=== PATIENT | male | born 1975 ===

== ENCOUNTER 2018-05-25 11:20 | Inpatient (IN) | payer MEDICAID, OTHER ==
[2018-05-25] MEDS ORDERED: Sodium Chloride 0.9% 1,000 ML IV STA ×2 (11:57)
--- NOTE | 2018-05-25 12:02 | ED PDOC ---
Hyperglycemia/Hypoglycemia Time Seen by Provider: 05/25/18 11:37 Chief Complaint (Nursing): High Blood Sugar Chief Complaint (Provider): High Blood Sugar History Per: Patient History/Exam Limitations: no limitations Onset/Duration Of Symptoms: Days (x3 weeks) Current Symptoms Are (Timing): Still Present Associated Infectious Symptoms: Urinary Frequency. denies: Nausea, Vomiting : The patient does not have any of the infectious symptoms listed except for those marked. Additional Complaint(s): 42 year old male presents for high glucose and ketones in urine. Patient was send by PMD due to symptoms. He states he has been thirsty, feeling dehydrated, and urinating a lot for the past 3 weeks. He also lost 30 pounds in the last 3 weeks. Patient denies chest pain, shortness of breath, nausea, vomiting, abdominal pain or any other medical complaints. PMD: [place] Past Medical History Reviewed: Historical Data, Nursing Documentation, Vital Signs Vital Signs: Last Vital Signs Temp 97.5 F L 05/25/18 11:30 Pulse 87 05/25/18 11:30 Resp 20 05/25/18 11:30 BP 147/87 05/25/18 11:30 Pulse Ox 99 05/25/18 11:30 - Medical History PMH: No Chronic Diseases - Family History Family History: States: Unknown Family Hx - Allergies Allergies/Adverse Reactions: Allergies Allergy/AdvReac Type Severity Reaction Status Date / Time No Known Allergies Allergy Verified 05/25/18 11:29 Review of Systems ROS Statement: Except As Marked, All Systems Reviewed And Found Negative Constitutional: Positive for: Weight loss (30 lbs in x3 weeks), Other (thirsty and dehydrated) Cardiovascular: Negative for: Chest Pain Respiratory: Negative for: Shortness of Breath Gastrointestinal: Negative for: Nausea, Vomiting, Abdominal Pain Genitourinary Male: Positive for: Frequency Physical Exam - Reviewed Nursing Documentation Reviewed: Yes Vital Signs Reviewed: Yes - Physical Exam Appears: Positive for: Non-toxic, No Acute Distress Head Exam: Positive for: ATRAUMATIC, NORMOCEPHALIC Skin: Positive for: Normal Color, Warm, Dry Eye Exam: Positive for: EOMI, Normal appearance, PERRL ENT: Positive for: Other (Mucous membranes dry) Neck: Positive for: Normal Cardiovascular/Chest: Positive for: Regular Rate, Rhythm. Negative for: Murmur Respiratory: Positive for: Normal Breath Sounds. Negative for: Respiratory Distress Gastrointestinal/Abdominal: Positive for: Normal Exam, Soft. Negative for: Tenderness Extremity: Positive for: Normal ROM (upper and lower). Negative for: Pedal Edema, Deformity Neurologic/Psych: Positive for: Alert, Oriented (x3) - Laboratory Results Result Diagrams: 05/25/18 12:05 05/25/18 12:05 - ECG O2 Sat by Pulse Oximetry: 99 (RA) Pulse Ox Interpretation: Normal - Radiology X-Ray: Interpreted by Me X-Ray Interpretation: No Acute Disease Medical Decision Making Medical Decision Making: Time: 1156 Initial Impression: High Glucose and Ketones Initial Plan: --EKG --CMP --Troponin --Urine dip --CBC with differentials --PTT --Prothrombin time --CXR --NS --Glucose --UA Scribe Attestation: Documented by Gladis Cisneros, acting as a scribe for Leatha Rainey MD Provider Scribe Attestation: All medical record entries made by the Scribe were at my direction and personally dictated by me. I have reviewed the chart and agree that the record accurately reflects my personal performance of the history, physical exam, medical decision making, and the department course for this patient. I have also personally directed, reviewed, and agree with the discharge instructions and disposition. Disposition - Disposition Condition: STABLE Forms: [employer] (Chinese)
[2018-05-25 12:16] LABS: VENOUS BLOOD GAS BASE EXCESS -6.4 mmol/L (0.0-2.0); VENOUS BLOOD GAS PCO2 43 mmHg (40-60); VENOUS BLOOD GAS PO2 38 mm/Hg (30-55); VENOUS BLOOD PH 7.28 (7.32-7.43)
[2018-05-25 12:19] LABS: BASO # 0.1 K/uL (0.0-0.2); BASO % 1.4 % (0.0-2.0); EOS # 0.1 K/uL (0.0-0.7); EOS % 1.7 % (0.0-4.0); HEMOGLOBIN 15.6 g/dL (12.0-18.0); LYMPH # 2.3 K/uL (1.0-4.3); LYMPH % 29.1 % (20.0-40.0); MEAN CELL VOLUME 86.8 fl (80.0-94.0); MEAN CORPUSCULAR HEMOGLOBIN 28.8 pg (27.0-31.0); MEAN CORPUSCULAR HGB CONC 33.2 g/dL (33.0-37.0); MEAN PLATELET VOLUME 9.6 fl (7.2-11.7); MONO # 0.6 K/uL (0.0-0.8); MONO % 7.9 % (0.0-10.0); NEUT # 4.7 K/uL (1.8-7.0); NEUT % 59.9 % (50.0-75.0); NRBC % 0.1 % (0.0-0.0); RBC 5.4 Mil/uL (4.40-5.90); RED CELL DISTRIBUTION WIDTH 13.2 % (11.5-14.5); WHITE BLOOD COUNT 7.9 K/uL (4.8-10.8)
[2018-05-25 12:29] LABS: INR 0.9; PROTHROMBIN TIME 10.5 Seconds (9.8-13.1)
[2018-05-25 12:30] LABS: ALB/GLOB RATIO 0.9 (1.0-2.1); ALBUMIN 4.4 g/dL (3.5-5.0); ALT/SGPT 54 U/L (21-72); AST/SGOT 33 U/L (17-59); BLOOD UREA NITROGEN 25 mg/dl (9-20); CALCIUM 9.8 mg/dL (8.4-10.2); GFR NON-AFRICAN AMERICAN > 60
[2018-05-25 12:31] LABS: PARTIAL THROMBOPLASTIN TIME 28.3 Seconds (25.6-37.1)
[2018-05-25 12:46] LABS: URINE BILIRUBIN NEGATIVE (NEGATIVE); URINE BLOOD NEGATIVE (NEGATIVE); URINE CLARITY CLEAR (Clear); URINE COLOR STRAW (YELLOW); URINE GLUCOSE (UA) >=500 mg/dL (NEGATIVE); URINE LEUKOCYTE ESTERASE NEG Leu/uL (Negative); URINE PROTEIN NEGATIVE (NEGATIVE); URINE UROBILINOGEN 0.2-1.0 mg/dL (0.2-1.0)
[2018-05-25] MEDS ORDERED: Dextrose 50% SYRINGE Inj (50 ml) IV PRN (12:54)
[2018-05-25] MEDS ORDERED: Glucagon Recombinant 1 mg Inj IM PRN (12:54)
--- NOTE | 2018-05-25 15:25 | CP.PCM.CON ---
History of Present Illness - History of Present Illness History of Present Illness: 42 YOM with strong family h/o DM, sent from his PCP office as his blood sugar was very HHH, on glucometer this morning. As per patient he was told 3-4 years ago, he was "pre-diabetic" but since then he never followed up with his physi sabi. For last month or so he has been urinating a lot, was feeling dehydrated and dizzy at times and had one episode of vomiting today. Lost about 30 lbs. This morning he walk into his PCP office, they sent him to ER where he found to have labs C/W DKA. No CP, fever, abdominal pain. Review of Systems - Constitutional Constitutional: As Per HPI - EENT Eyes: As Per HPI Nose/Mouth/Throat: As Per HPI - Cardiovascular Cardiovascular: As Per HPI - Respiratory Respiratory: As Per HPI - Gastrointestinal Gastrointestinal: Vomiting - Genitourinary Genitourinary: As Per HPI - Musculoskeletal Musculoskeletal: Stiffness Past Patient History - Past Medical History & Family History Past Medical History?: No - Past Social History Smoking Status: Heavy Smoker > 10 Cigarettes Daily - CARDIAC Hx Cardiac Disorders: Yes - PULMONARY Hx Respiratory Disorders: No - NEUROLOGICAL Hx Neurological Disorder: No - HEENT Hx HEENT Problems: No - RENAL Hx Chronic Kidney Disease: No - ENDOCRINE/METABOLIC Hx Endocrine Disorders: Yes - HEMATOLOGICAL/ONCOLOGICAL Hx Blood Disorders: No Hx AIDS: No Hx Human Immunodeficiency Virus (HIV): No - INTEGUMENTARY Hx Dermatological Problems: No - MUSCULOSKELETAL/RHEUMATOLOGICAL Hx Musculoskeletal Disorders: No Hx Falls: No - GENITOURINARY/GYNECOLOGICAL Hx Genitourinary Disorders: No - PSYCHIATRIC Hx Psychophysiologic Disorder: No Hx Substance Use: No - SURGICAL HISTORY Hx Surgeries: No - ANESTHESIA Hx Anesthesia: No Meds Allergies/Adverse Reactions: Allergies Allergy/AdvReac Type Severity Reaction Status Date / Time No Known Allergies Allergy Verified 05/25/18 11:29 - Medications Medications: Current Medications Dextrose (Dextrose 50% Inj) 0 ml IV STAT PRN; Protocol PRN Reason: Hypoglycemia Protocol Dextrose (Glutose 15) 0 gm PO ONCE PRN; Protocol PRN Reason: Hypoglycemia Protocol Glucagon (Glucagen Diagnostic Kit) 0 mg IM STAT PRN; Protocol PRN Reason: Hypoglycemia Protocol Insulin Human Regular 100 (units/ Sodium Chloride) 101 mls @ 10.1 mls/hr IV .Q10H MARY; Protocol Last Admin: 12/08/18 13:18 Dose: 10 units/hr, 10.1 mls/hr Sodium Chloride (Sodium Chloride 0.9%) 1,000 mls @ 250 mls/hr IV .Q4H MARY Stop: 05/26/18 14:47 Physical Exam - Head Exam Head Exam: ATRAUMATIC - Eye Exam Pupil Exam: PERRL - ENT Exam ENT Exam: Mucous Membranes Dry - Neck Exam Neck exam: Positive for: Full Rom - Respiratory Exam Respiratory Exam: NORMAL BREATHING PATTERN - Cardiovascular Exam Cardiovascular Exam: REGULAR RHYTHM - GI/Abdominal Exam GI & Abdominal Exam: Soft Results - Vital Signs Recent Vital Signs: Last Vital Signs Temp 97.5 F L 05/25/18 11:30 Pulse 88 05/25/18 14:12 Resp 13 05/25/18 14:12 BP 152/81 H 05/25/18 13:26 Pulse Ox 100 05/25/18 13:26 - Labs Result Diagrams: 05/25/18 12:05 05/25/18 12:05 Labs: Laboratory Results - last 24 hr 05/25/18 05/25/18 05/25/18 11:53 12:05 12:05 WBC 7.9 RBC 5.40 Hgb 15.6 Hct 46.9 MCV 86.8 MCH 28.8 MCHC 33.2 RDW 13.2 Plt Count 174 MPV 9.6 Neut % (Auto) 59.9 Lymph % (Auto) 29.1 [place] % (Auto) 7.9 Eos % (Auto) 1.7 Baso % (Auto) 1.4 Neut # (Auto) 4.7 Lymph # (Auto) 2.3 [place] # (Auto) 0.6 Eos # (Auto) 0.1 Baso # (Auto) 0.1 PT INR APTT pO2 ABG Carboxyhemoglobin POC ABG HHb (Measured) ABG Methemoglobin VBG pH VBG pCO2 VBG HCO3 VBG O2 Sat (Calc) VBG Base Excess VBG Hgb O2 Saturation Hemoglobin Blood Gas Comments Crit Value Called To Crit Value Called By Crit Value Read Back Blood Gas Notified Time Sodium 131 L Potassium 5.2 H Chloride 95 L Carbon Dioxide 16 L Anion Gap 25 H BUN 25 H Creatinine 0.9 Est GFR ( Amer) > 60 Est GFR (Non-Af Amer) > 60 POC Glucose (mg/dL) > 500 H* Random Glucose 715 H* Calcium 9.8 Total Bilirubin 0.7 AST 33 ALT 54 Alkaline Phosphatase 260 H Troponin I < 0.0120 Total Protein 9.2 H Albumin 4.4 Globulin 4.8 H Albumin/Globulin Ratio 0.9 L Urine Color Urine Clarity Urine pH Ur Specific [place] Urine Protein Urine Glucose (UA) Urine Ketones Urine Blood Urine Nitrate Urine Bilirubin Urine Urobilinogen Ur Leukocyte Esterase Urine RBC (Auto) Urine Microscopic WBC 05/25/18 05/25/18 05/25/18 12:05 12:05 12:20 WBC RBC Hgb Hct MCV MCH MCHC RDW Plt Count MPV Neut % (Auto) Lymph % (Auto) [place] % (Auto) Eos % (Auto) Baso % (Auto) Neut # (Auto) Lymph # (Auto) [place] # (Auto) Eos # (Auto) Baso # (Auto) PT 10.5 INR 0.9 APTT 28.3 pO2 38 ABG Carboxyhemoglobin 3.8 H POC ABG HHb (Measured) 21.1 H ABG Methemoglobin 3.1 H VBG pH 7.28 L VBG pCO2 43 VBG HCO3 19.1 VBG O2 Sat (Calc) 77.3 H VBG Base Excess -6.4 L VBG Hgb O2 Saturation 72.0 L Hemoglobin 16.4 Blood Gas Comments Vbg Crit Value Called To Nicole baltazar r.n. Crit Value Called By Tanya Crit Value Read Back Y Blood Gas Notified Time 1216 Sodium Potassium Chloride Carbon Dioxide Anion Gap BUN Creatinine Est GFR ( Amer) Est GFR (Non-Af Amer) POC Glucose (mg/dL) Random Glucose Calcium Total Bilirubin AST ALT Alkaline Phosphatase Troponin I Total Protein Albumin Globulin Albumin/Globulin Ratio Urine Color Straw Urine Clarity Clear Urine pH 6.0 Ur Specific [place] 1.030 Urine Protein Negative Urine Glucose (UA) >=500 Urine Ketones 20 Urine Blood Negative Urine Nitrate Negative Urine Bilirubin Negative Urine Urobilinogen 0.2-1.0 Ur Leukocyte Esterase Neg Urine RBC (Auto) < 1 Urine Microscopic WBC < 1 05/25/18 05/25/18 13:20 14:32 WBC RBC Hgb Hct MCV MCH MCHC RDW Plt Count MPV Neut % (Auto) Lymph % (Auto) [place] % (Auto) Eos % (Auto) Baso % (Auto) Neut # (Auto) Lymph # (Auto) [place] # (Auto) Eos # (Auto) Baso # (Auto) PT INR APTT pO2 ABG Carboxyhemoglobin POC ABG HHb (Measured) ABG Methemoglobin VBG pH VBG pCO2 VBG HCO3 VBG O2 Sat (Calc) VBG Base Excess VBG Hgb O2 Saturation Hemoglobin Blood Gas Comments Crit Value Called To Crit Value Called By Crit Value Read Back Blood Gas Notified Time Sodium Potassium Chloride Carbon Dioxide Anion Gap BUN Creatinine Est GFR ( Amer) Est GFR (Non-Af Amer) POC Glucose (mg/dL) 494 H* 387 H Random Glucose Calcium Total Bilirubin AST ALT Alkaline Phosphatase Troponin I Total Protein Albumin Globulin Albumin/Globulin Ratio Urine Color Urine Clarity Urine pH Ur Specific [place] Urine Protein Urine Glucose (UA) Urine Ketones Urine Blood Urine Nitrate Urine Bilirubin Urine Urobilinogen Ur Leukocyte Esterase Urine RBC (Auto) Urine Microscopic WBC Assessment & Plan - Assessment and Plan (Free Text) Assessment: DKA Dehydration Hyperkalemia metabolic acidosis Plan: Insulin 10 unit/h IVF bolus 3000 L NS NS IVF 250 cc/h BS q 1 hour BMP q 6 hours DVT prophylaxis, Lovenox Endocrinology consult.
[2018-05-25] MEDS: Sodium Chloride 0.9% 1,000 ML IV SCH ×3 (15:40→23:54)
[2018-05-25] MEDS: Enoxaparin 40 mg Syringe SC SCH (17:16)
--- NOTE | 2018-05-25 17:50 | RAD ---
Date of service: 05/25/2018 HISTORY: Hyperglycemia COMPARISON: No prior. TECHNIQUE: Chest PA and lateral FINDINGS: LUNGS: No active pulmonary disease. PLEURA: No significant pleural effusion identified. No pneumothorax apparent. CARDIOVASCULAR: No aortic atherosclerotic calcification present. Normal cardiac size. No pulmonary vascular congestion. OSSEOUS STRUCTURES: No significant abnormalities. VISUALIZED UPPER ABDOMEN: Normal. OTHER FINDINGS: None. IMPRESSION: No active disease.
[2018-05-25 20:12] LABS: ALB/GLOB RATIO 0.9 (1.0-2.1); ALBUMIN 3.7 g/dL (3.5-5.0); ALT/SGPT 41 U/L (21-72); AST/SGOT 26 U/L (17-59); BLOOD UREA NITROGEN 19 mg/dl (9-20); CALCIUM 8.6 mg/dL (8.4-10.2); GFR NON-AFRICAN AMERICAN > 60
[2018-05-25] MEDS: POLYETHYLENE GLYCOL 3350 17 GM/Dose PACKET PO PRN (20:50)
[2018-05-26] MEDS ORDERED: Insulin Detemir 100 Units/ml Inj SC ONE
--- NOTE | 2018-05-26 00:17 | CON ---
DATE: 05/25/2018 ENDOCRINOLOGY CONSULTATION LOCATION: In ICU, room 430. HISTORY OF PRESENT ILLNESS: This is a 42-year-old male with known history of prediabetes, presenting here with marked hyperglycemic accelerations as evaluated by his primary care physician and is being referred also for diabetic evaluation and management. PAST MEDICAL HISTORY: History of having been told about 4 years ago that he was prediabetic and lost follow up with his primary physician at that time with no medications given. FAMILY HISTORY: Strongly positive for diabetes on his maternal side of the family with hypertension and heart disease. SOCIAL HISTORY: The patient smokes half a pack for some years now. He has a very supportive family otherwise and works as a reach lift truck driver. REVIEW OF SYSTEMS: As mentioned above. Admits to generalized body weakness with progressive bouts of dizziness and lightheadedness, and worse in the last 2 to 3 days prior to admission. Also admits to bifrontal headaches with visual blurring as noted. No chest pains or palpitations, but admits to progressive shortness of breath, especially on exertion. His oral intake has been variable with nausea, dyspepsia, and episodic vomiting episodes, also admits to marked polyuria, nocturia, and polydipsia, and about 30 pounds or so weight loss in the last 3 to 4 months prior to admission. Admits to lower extremity paresthesias, especially nocturnally. PHYSICAL EXAMINATION: GENERAL: This is an overweight male, in no apparent distress. VITAL SIGNS: Blood pressure of 140/80, pulse of 100 beats per minute and regular, temperature 98, and respirations 20. Height is 6 feet 1 inch, weight is 254 pounds. HEENT: Head, normocephalic. Eyes are anicteric with pink conjunctivae. Funduscopy not possible at this time. Ears, nose and throat are otherwise normal. NECK: Supple. Thyroid gland is normal in size. No carotid bruits or any cervical adenopathy. CARDIOPULMONARY: Some adynamic precordium. S1 and S2 is rapid and regular. LUNGS: Clear to auscultation. ABDOMEN: Obese and soft with positive bowel sounds. EXTREMITIES: No peripheral edema. Pulses are +2 bilaterally. SKIN: His skin turgor is very coarse and dry and the buccal mucosa is parched and dry. LABORATORY DATA: Chemistries shows a BUN of 25, sodium 131, potassium 5.2, chloride 95, CO2 16, glucose 715, and creatinine 0.9. His glucose levels have ranged from 365 to 387 and 494 mg/dL. ASSESSMENT: This is a 42-year-old male with uncontrolled and decompensated type 2 insulin-requiring diabetes, presenting here hyperosmolar hyperglycemic state with mild ketosis and clinical and biochemical evidence of dehydration and prerenal azotemia with spurious hyponatremia and hyperkalemia. This is a distant history of prediabetes as mentioned above. PLAN OF MANAGEMENT: He needs vigorous IV hydration and we would continue the normal saline running at 250 mL per hour for at least the next 24 hours and will repeat serial chemistries tonight and adjust his dose accordingly. We will also intensify insulin therapy and although he does not really need an insulin drip as we are not dealing with diabetic ketoacidosis, but at least initiating intensive insulin therapy today would lower glucotoxicity and improve his metabolic and clinical symptoms rapidly thereof. We will repeat the chemistries tonight and if his CO2 is about 18 to 20, then we safely discontinue the insulin drip accordingly and switch him over to more physiologic basal and bolus insulin drug combination as indicated. We will obtain serial chemistries and supplement accordingly as needed. We will also add a serum C-peptide to assess his endogenous pancreatic reserve and [id number]-65 antibodies, which will possibly confirm any underlying insulin autoimmunity. With his age category, he may be luck enough to improve his endogenous pancreatic reserve with intensive insulin therapy given as basal and bolus insulin regimen, and may times this kind of patients may respond dramatically and recover islets of the pancreas and be able to swing over to a combination of oral hypoglycemic therapy with or without basal insulin as indicated. Only time will tell whether he may remain on insulin as lifelong therapy or whether we can switch him over to a combination of oral hypoglycemic therapy with basal insulin therapy as indicated. We will initiate diabetic education and dietary instruction also at the time of this admission and to include insulin self administration and home glucose monitoring. We will consult current diabetic nurse educator, Ms. Alisson Horton, regarding the aforementioned. We will also consult a unit manager for healthier food choices and weight loss efforts accordingly. We will follow. Barbie Head MD
[2018-05-26] MEDS: Sodium Chloride 0.9% 1,000 ML IV SCH ×3 (05:46→18:32)
[2018-05-26 07:02] LABS: ALB/GLOB RATIO 0.8 (1.0-2.1); ALBUMIN 3.1 g/dL (3.5-5.0); ALT/SGPT 49 U/L (21-72); AST/SGOT 34 U/L (17-59); BLOOD UREA NITROGEN 13 mg/dl (9-20); CALCIUM 7.8 mg/dL (8.4-10.2); GFR NON-AFRICAN AMERICAN > 60; HDL CHOLESTEROL 27 MG/DL (30-70); LDL CHOLESTEROL 46 mg/dL (0-129)
[2018-05-26] MEDS ORDERED: Insulin Lispro (humaLOG) 100 Units/ml Inj SC SCH (07:30)
[2018-05-26] MEDS: Enoxaparin 40 mg Syringe SC SCH (09:02)
--- NOTE | 2018-05-26 10:04 | CP.CCUPN ---
CCU Subjective - Physician Review Events Since Last Encounter (Free Text): 05/26/18 10:02 alert and oriented, feeling " great ", no pain, sob , nausea/vomiting, abdominal pain . has been off insulin drip since yesterday. CCU Objective - Vital Signs / Intake & Output Vital Signs (Last 4 hours): Vital Signs Temp Pulse Resp BP Pulse Ox 05/26/18 08:00 98.1 F 70 20 124/86 98 Intake and Output (Last 8hrs): Intake & Output 05/25/18 05/26/18 05/26/18 22:59 06:59 14:59 Intake Total 2311 1400 Output Total 400 510 Balance 2311 1000 -510 Weight 254 lb Intake: IV 1831 1200 Oral 480 200 Output: Urine 400 510 Urine, Voided 400 510 Other: # Voids Urine, Voided 1 1 1 - Physical Exam Narrative Physical Exam (Free Text): 05/26/18 10:03 P/E Neck: No JVD Lungs: No ronci, crackles Abdomen: soft, non-tender Ext; No edema Heart: No gallop - Medications Active Medications: Active Medications Generic Name Dose Route Start Last Admin Trade Name Freq PRN Reason Stop Dose Admin Enoxaparin Sodium 40 mg 05/25/18 15:45 05/26/18 09:02 Lovenox SC 05/31/18 12:00 40 mg DAILY MARY Administration Protocol Sodium Chloride 1,000 mls @ 150 mls/hr 05/25/18 23:30 05/26/18 05:46 Sodium Chloride 0.9% IV 05/26/18 23:22 150 mls/hr [id number] MARY Administration Insulin Detemir 24 units 05/26/18 22:00 Levemir SC HS MARY Insulin Human Lispro 8 units 05/26/18 11:30 Humalog SC AC MARY Insulin Human Lispro 0 units 05/26/18 11:30 Humalog SC A[facility]S [facility] Protocol Levothyroxine Sodium 75 mcg 05/27/18 06:30 Synthroid PO DAILY@0630 MARY Polyethylene Glycol 17 gm 05/25/18 20:17 05/25/18 20:50 Miralax PO 17 gm DAILY PRN Administration Constipation - Patient Studies Lab Studies: Lab Studies 05/26/18 05/26/18 05/25/18 Range/Units 05:42 05:30 23:11 WBC (4.8-10.8) K/uL RBC (4.40-5.90) Mil/uL Hgb (12.0-18.0) g/dL Hct (35.0-51.0) % MCV (80.0-94.0) fl MCH (27.0-31.0) pg MCHC (33.0-37.0) g/dL RDW (11.5-14.5) % Plt Count (130-400) K/uL MPV (7.2-11.7) fl Neut % (Auto) (50.0-75.0) % Lymph % (Auto) (20.0-40.0) % [place] % (Auto) (0.0-10.0) % Eos % (Auto) (0.0-4.0) % Baso % (Auto) (0.0-2.0) % Neut # (Auto) (1.8-7.0) K/uL Lymph # (Auto) (1.0-4.3) K/uL [place] # (Auto) (0.0-0.8) K/uL Eos # (Auto) (0.0-0.7) K/uL Baso # (Auto) (0.0-0.2) K/uL PT (9.8-13.1) Seconds INR APTT (25.6-37.1) Seconds pO2 (30-55) mm/Hg ABG Carboxyhemoglobin (0.5-1.5) % POC ABG HHb (Measured) (0.0-5.0) % ABG Methemoglobin (0.0-3.0) % VBG pH (7.32-7.43) VBG pCO2 (40-60) mmHg VBG HCO3 mmol/L VBG O2 Sat (Calc) (40-65) % VBG Base Excess (0.0-2.0) mmol/L VBG Hgb O2 Saturation (95.0-98.0) % Hemoglobin (11.7-17.4) g/dL Blood Gas Comments Crit Value Called To Crit Value Called By Crit Value Read Back Blood Gas Notified Time Sodium 135 (132-148) mmol/l Potassium 4.2 (3.6-5.0) MMOL/L Chloride 105 (98-107) mmol/L Carbon Dioxide 21 L (22-30) mmol/L Anion Gap 13 (10-20) BUN 13 (9-20) mg/dl Creatinine 0.7 L (0.8-1.5) mg/dl Est GFR ( Amer) > 60 Est GFR (Non-Af Amer) > 60 POC Glucose (mg/dL) 224 H 221 H (65-110) mg/dL Random Glucose 267 H (75-110) mg/dL Calcium 7.8 L (8.4-10.2) mg/dL Phosphorus 2.5 (2.5-4.5) mg/dl Magnesium 1.5 L (1.6-2.3) MG/DL Total Bilirubin 0.4 (0.2-1.3) mg/dl AST 34 (17-59) U/L ALT 49 (21-72) U/L Alkaline Phosphatase 108 (38-126) U/L Troponin I (0.00-0.120) ng/mL Total Protein 6.8 (6.3-8.2) G/DL Albumin 3.1 L (3.5-5.0) g/dL Globulin 3.7 (2.2-3.9) gm/dL Albumin/Globulin Ratio 0.8 L (1.0-2.1) Triglycerides 862 H (0-149) mg/DL Cholesterol 227 H (0-199) mg/dL LDL Cholesterol Direct 46 (0-129) mg/dL HDL Cholesterol 27 L (30-70) MG/DL TSH 3rd Generation 8.86 H (0.46-4.68) mIU/ML Urine Color (YELLOW) Urine Clarity (Clear) Urine pH (5.0-8.0) Ur Specific [place] (1.003-1.030) Urine Protein (NEGATIVE) mg/dL Urine Glucose (UA) (NEGATIVE) mg/dL Urine Ketones (NEGATIVE) mg/dL Urine Blood (NEGATIVE) Urine Nitrate (NEGATIVE) Urine Bilirubin (NEGATIVE) Urine Urobilinogen (0.2-1.0) mg/dL Ur Leukocyte Esterase (Negative) Aaron/uL Urine RBC (Auto) (0-3) /hpf Urine Microscopic WBC (0-5) /hpf 05/25/18 05/25/18 05/25/18 Range/Units 21:59 21:02 19:57 WBC (4.8-10.8) K/uL RBC (4.40-5.90) Mil/uL Hgb (12.0-18.0) g/dL Hct (35.0-51.0) % MCV (80.0-94.0) fl MCH (27.0-31.0) pg MCHC (33.0-37.0) g/dL RDW (11.5-14.5) % Plt Count (130-400) K/uL MPV (7.2-11.7) fl Neut % (Auto) (50.0-75.0) % Lymph % (Auto) (20.0-40.0) % [place] % (Auto) (0.0-10.0) % Eos % (Auto) (0.0-4.0) % Baso % (Auto) (0.0-2.0) % Neut # (Auto) (1.8-7.0) K/uL Lymph # (Auto) (1.0-4.3) K/uL [place] # (Auto) (0.0-0.8) K/uL Eos # (Auto) (0.0-0.7) K/uL Baso # (Auto) (0.0-0.2) K/uL PT (9.8-13.1) Seconds INR APTT (25.6-37.1) Seconds pO2 (30-55) mm/Hg ABG Carboxyhemoglobin (0.5-1.5) % POC ABG HHb (Measured) (0.0-5.0) % ABG Methemoglobin (0.0-3.0) % VBG pH (7.32-7.43) VBG pCO2 (40-60) mmHg VBG HCO3 mmol/L VBG O2 Sat (Calc) (40-65) % VBG Base Excess (0.0-2.0) mmol/L VBG Hgb O2 Saturation (95.0-98.0) % Hemoglobin (11.7-17.4) g/dL Blood Gas Comments Crit Value Called To Crit Value Called By Crit Value Read Back Blood Gas Notified Time Sodium (132-148) mmol/l Potassium (3.6-5.0) MMOL/L Chloride (98-107) mmol/L Carbon Dioxide (22-30) mmol/L Anion Gap (10-20) BUN (9-20) mg/dl Creatinine (0.8-1.5) mg/dl Est GFR ( Amer) Est GFR (Non-Af Amer) POC Glucose (mg/dL) 231 H 240 H 302 H (65-110) mg/dL Random Glucose (75-110) mg/dL Calcium (8.4-10.2) mg/dL Phosphorus (2.5-4.5) mg/dl Magnesium (1.6-2.3) MG/DL Total Bilirubin (0.2-1.3) mg/dl AST (17-59) U/L ALT (21-72) U/L Alkaline Phosphatase (38-126) U/L Troponin I (0.00-0.120) ng/mL Total Protein (6.3-8.2) G/DL Albumin (3.5-5.0) g/dL Globulin (2.2-3.9) gm/dL Albumin/Globulin Ratio (1.0-2.1) Triglycerides (0-149) mg/DL Cholesterol (0-199) mg/dL LDL Cholesterol Direct (0-129) mg/dL HDL Cholesterol (30-70) MG/DL TSH 3rd Generation (0.46-4.68) mIU/ML Urine Color (YELLOW) Urine Clarity (Clear) Urine pH (5.0-8.0) Ur Specific [place] (1.003-1.030) Urine Protein (NEGATIVE) mg/dL Urine Glucose (UA) (NEGATIVE) mg/dL Urine Ketones (NEGATIVE) mg/dL Urine Blood (NEGATIVE) Urine Nitrate (NEGATIVE) Urine Bilirubin (NEGATIVE) Urine Urobilinogen (0.2-1.0) mg/dL Ur Leukocyte Esterase (Negative) Aaron/uL Urine RBC (Auto) (0-3) /hpf Urine Microscopic WBC (0-5) /hpf 05/25/18 05/25/18 05/25/18 Range/Units 19:45 18:52 18:01 WBC (4.8-10.8) K/uL RBC (4.40-5.90) Mil/uL Hgb (12.0-18.0) g/dL Hct (35.0-51.0) % MCV (80.0-94.0) fl MCH (27.0-31.0) pg MCHC (33.0-37.0) g/dL RDW (11.5-14.5) % Plt Count (130-400) K/uL MPV (7.2-11.7) fl Neut % (Auto) (50.0-75.0) % Lymph % (Auto) (20.0-40.0) % [place] % (Auto) (0.0-10.0) % Eos % (Auto) (0.0-4.0) % Baso % (Auto) (0.0-2.0) % Neut # (Auto) (1.8-7.0) K/uL Lymph # (Auto) (1.0-4.3) K/uL [place] # (Auto) (0.0-0.8) K/uL Eos # (Auto) (0.0-0.7) K/uL Baso # (Auto) (0.0-0.2) K/uL PT (9.8-13.1) Seconds INR APTT (25.6-37.1) Seconds pO2 (30-55) mm/Hg ABG Carboxyhemoglobin (0.5-1.5) % POC ABG HHb (Measured) (0.0-5.0) % ABG Methemoglobin (0.0-3.0) % VBG pH (7.32-7.43) VBG pCO2 (40-60) mmHg VBG HCO3 mmol/L VBG O2 Sat (Calc) (40-65) % VBG Base Excess (0.0-2.0) mmol/L VBG Hgb O2 Saturation (95.0-98.0) % Hemoglobin (11.7-17.4) g/dL Blood Gas Comments Crit Value Called To Crit Value Called By Crit Value Read Back Blood Gas Notified Time Sodium 135 (132-148) mmol/l Potassium 4.0 (3.6-5.0) MMOL/L Chloride 103 (98-107) mmol/L Carbon Dioxide 21 L (22-30) mmol/L Anion Gap 15 (10-20) BUN 19 (9-20) mg/dl Creatinine 0.9 (0.8-1.5) mg/dl Est GFR ( Amer) > 60 Est GFR (Non-Af Amer) > 60 POC Glucose (mg/dL) 401 H* 302 H (65-110) mg/dL Random Glucose 332 H (75-110) mg/dL Calcium 8.6 (8.4-10.2) mg/dL Phosphorus (2.5-4.5) mg/dl Magnesium (1.6-2.3) MG/DL Total Bilirubin 0.4 (0.2-1.3) mg/dl AST 26 (17-59) U/L ALT 41 (21-72) U/L Alkaline Phosphatase 160 H D (38-126) U/L Troponin I (0.00-0.120) ng/mL Total Protein 7.6 (6.3-8.2) G/DL Albumin 3.7 (3.5-5.0) g/dL Globulin 4.0 H (2.2-3.9) gm/dL Albumin/Globulin Ratio 0.9 L (1.0-2.1) Triglycerides (0-149) mg/DL Cholesterol (0-199) mg/dL LDL Cholesterol Direct (0-129) mg/dL HDL Cholesterol (30-70) MG/DL TSH 3rd Generation (0.46-4.68) mIU/ML Urine Color (YELLOW) Urine Clarity (Clear) Urine pH (5.0-8.0) Ur Specific [place] (1.003-1.030) Urine Protein (NEGATIVE) mg/dL Urine Glucose (UA) (NEGATIVE) mg/dL Urine Ketones (NEGATIVE) mg/dL Urine Blood (NEGATIVE) Urine Nitrate (NEGATIVE) Urine Bilirubin (NEGATIVE) Urine Urobilinogen (0.2-1.0) mg/dL Ur Leukocyte Esterase (Negative) Aaron/uL Urine RBC (Auto) (0-3) /hpf Urine Microscopic WBC (0-5) /hpf 05/25/18 05/25/18 05/25/18 Range/Units 17:00 15:29 14:32 WBC (4.8-10.8) K/uL RBC (4.40-5.90) Mil/uL Hgb (12.0-18.0) g/dL Hct (35.0-51.0) % MCV (80.0-94.0) fl MCH (27.0-31.0) pg MCHC (33.0-37.0) g/dL RDW (11.5-14.5) % Plt Count (130-400) K/uL MPV (7.2-11.7) fl Neut % (Auto) (50.0-75.0) % Lymph % (Auto) (20.0-40.0) % [place] % (Auto) (0.0-10.0) % Eos % (Auto) (0.0-4.0) % Baso % (Auto) (0.0-2.0) % Neut # (Auto) (1.8-7.0) K/uL Lymph # (Auto) (1.0-4.3) K/uL [place] # (Auto) (0.0-0.8) K/uL Eos # (Auto) (0.0-0.7) K/uL Baso # (Auto) (0.0-0.2) K/uL PT (9.8-13.1) Seconds INR APTT (25.6-37.1) Seconds pO2 (30-55) mm/Hg ABG Carboxyhemoglobin (0.5-1.5) % POC ABG HHb (Measured) (0.0-5.0) % ABG Methemoglobin (0.0-3.0) % VBG pH (7.32-7.43) VBG pCO2 (40-60) mmHg VBG HCO3 mmol/L VBG O2 Sat (Calc) (40-65) % VBG Base Excess (0.0-2.0) mmol/L VBG Hgb O2 Saturation (95.0-98.0) % Hemoglobin (11.7-17.4) g/dL Blood Gas Comments Crit Value Called To Crit Value Called By Crit Value Read Back Blood Gas Notified Time Sodium (132-148) mmol/l Potassium (3.6-5.0) MMOL/L Chloride (98-107) mmol/L Carbon Dioxide (22-30) mmol/L Anion Gap (10-20) BUN (9-20) mg/dl Creatinine (0.8-1.5) mg/dl Est GFR ( Amer) Est GFR (Non-Af Amer) POC Glucose (mg/dL) 315 H 365 H 387 H (65-110) mg/dL Random Glucose (75-110) mg/dL Calcium (8.4-10.2) mg/dL Phosphorus (2.5-4.5) mg/dl Magnesium (1.6-2.3) MG/DL Total Bilirubin (0.2-1.3) mg/dl AST (17-59) U/L ALT (21-72) U/L Alkaline Phosphatase (38-126) U/L Troponin I (0.00-0.120) ng/mL Total Protein (6.3-8.2) G/DL Albumin (3.5-5.0) g/dL Globulin (2.2-3.9) gm/dL Albumin/Globulin Ratio (1.0-2.1) Triglycerides (0-149) mg/DL Cholesterol (0-199) mg/dL LDL Cholesterol Direct (0-129) mg/dL HDL Cholesterol (30-70) MG/DL TSH 3rd Generation (0.46-4.68) mIU/ML Urine Color (YELLOW) Urine Clarity (Clear) Urine pH (5.0-8.0) Ur Specific [place] (1.003-1.030) Urine Protein (NEGATIVE) mg/dL Urine Glucose (UA) (NEGATIVE) mg/dL Urine Ketones (NEGATIVE) mg/dL Urine Blood (NEGATIVE) Urine Nitrate (NEGATIVE) Urine Bilirubin (NEGATIVE) Urine Urobilinogen (0.2-1.0) mg/dL Ur Leukocyte Esterase (Negative) Aaron/uL Urine RBC (Auto) (0-3) /hpf Urine Microscopic WBC (0-5) /hpf 05/25/18 05/25/18 05/25/18 Range/Units 13:20 12:20 12:05 WBC (4.8-10.8) K/uL RBC (4.40-5.90) Mil/uL Hgb (12.0-18.0) g/dL Hct (35.0-51.0) % MCV (80.0-94.0) fl MCH (27.0-31.0) pg MCHC (33.0-37.0) g/dL RDW (11.5-14.5) % Plt Count (130-400) K/uL MPV (7.2-11.7) fl Neut % (Auto) (50.0-75.0) % Lymph % (Auto) (20.0-40.0) % [place] % (Auto) (0.0-10.0) % Eos % (Auto) (0.0-4.0) % Baso % (Auto) (0.0-2.0) % Neut # (Auto) (1.8-7.0) K/uL Lymph # (Auto) (1.0-4.3) K/uL [place] # (Auto) (0.0-0.8) K/uL Eos # (Auto) (0.0-0.7) K/uL Baso # (Auto) (0.0-0.2) K/uL PT (9.8-13.1) Seconds INR APTT (25.6-37.1) Seconds pO2 38 (30-55) mm/Hg ABG Carboxyhemoglobin 3.8 H (0.5-1.5) % POC ABG HHb (Measured) 21.1 H (0.0-5.0) % ABG Methemoglobin 3.1 H (0.0-3.0) % VBG pH 7.28 L (7.32-7.43) VBG pCO2 43 (40-60) mmHg VBG HCO3 19.1 mmol/L VBG O2 Sat (Calc) 77.3 H (40-65) % VBG Base Excess -6.4 L (0.0-2.0) mmol/L VBG Hgb O2 Saturation 72.0 L (95.0-98.0) % Hemoglobin 16.4 (11.7-17.4) g/dL Blood Gas Comments Vbg Crit Value Called To Nicole baltazar r.n. Crit Value Called By Tanya Crit Value Read Back Y Blood Gas Notified Time 1216 Sodium (132-148) mmol/l Potassium (3.6-5.0) MMOL/L Chloride (98-107) mmol/L Carbon Dioxide (22-30) mmol/L Anion Gap (10-20) BUN (9-20) mg/dl Creatinine (0.8-1.5) mg/dl Est GFR ( Amer) Est GFR (Non-Af Amer) POC Glucose (mg/dL) 494 H* (65-110) mg/dL Random Glucose (75-110) mg/dL Calcium (8.4-10.2) mg/dL Phosphorus (2.5-4.5) mg/dl Magnesium (1.6-2.3) MG/DL Total Bilirubin (0.2-1.3) mg/dl AST (17-59) U/L ALT (21-72) U/L Alkaline Phosphatase (38-126) U/L Troponin I (0.00-0.120) ng/mL Total Protein (6.3-8.2) G/DL Albumin (3.5-5.0) g/dL Globulin (2.2-3.9) gm/dL Albumin/Globulin Ratio (1.0-2.1) Triglycerides (0-149) mg/DL Cholesterol (0-199) mg/dL LDL Cholesterol Direct (0-129) mg/dL HDL Cholesterol (30-70) MG/DL TSH 3rd Generation (0.46-4.68) mIU/ML Urine Color Straw (YELLOW) Urine Clarity Clear (Clear) Urine pH 6.0 (5.0-8.0) Ur Specific [place] 1.030 (1.003-1.030) Urine Protein Negative (NEGATIVE) mg/dL Urine Glucose (UA) >=500 (NEGATIVE) mg/dL Urine Ketones 20 (NEGATIVE) mg/dL Urine Blood Negative (NEGATIVE) Urine Nitrate Negative (NEGATIVE) Urine Bilirubin Negative (NEGATIVE) Urine Urobilinogen 0.2-1.0 (0.2-1.0) mg/dL Ur Leukocyte Esterase Neg (Negative) Aaron/uL Urine RBC (Auto) < 1 (0-3) /hpf Urine Microscopic WBC < 1 (0-5) /hpf 05/25/18 05/25/18 05/25/18 Range/Units 12:05 12:05 12:05 WBC 7.9 (4.8-10.8) K/uL RBC 5.40 (4.40-5.90) Mil/uL Hgb 15.6 (12.0-18.0) g/dL Hct 46.9 (35.0-51.0) % MCV 86.8 (80.0-94.0) fl MCH 28.8 (27.0-31.0) pg MCHC 33.2 (33.0-37.0) g/dL RDW 13.2 (11.5-14.5) % Plt Count 174 (130-400) K/uL MPV 9.6 (7.2-11.7) fl Neut % (Auto) 59.9 (50.0-75.0) % Lymph % (Auto) 29.1 (20.0-40.0) % [place] % (Auto) 7.9 (0.0-10.0) % Eos % (Auto) 1.7 (0.0-4.0) % Baso % (Auto) 1.4 (0.0-2.0) % Neut # (Auto) 4.7 (1.8-7.0) K/uL Lymph # (Auto) 2.3 (1.0-4.3) K/uL [place] # (Auto) 0.6 (0.0-0.8) K/uL Eos # (Auto) 0.1 (0.0-0.7) K/uL Baso # (Auto) 0.1 (0.0-0.2) K/uL PT 10.5 (9.8-13.1) Seconds INR 0.9 APTT 28.3 (25.6-37.1) Seconds pO2 (30-55) mm/Hg ABG Carboxyhemoglobin (0.5-1.5) % POC ABG HHb (Measured) (0.0-5.0) % ABG Methemoglobin (0.0-3.0) % VBG pH (7.32-7.43) VBG pCO2 (40-60) mmHg VBG HCO3 mmol/L VBG O2 Sat (Calc) (40-65) % VBG Base Excess (0.0-2.0) mmol/L VBG Hgb O2 Saturation (95.0-98.0) % Hemoglobin (11.7-17.4) g/dL Blood Gas Comments Crit Value Called To Crit Value Called By Crit Value Read Back Blood Gas Notified Time Sodium 131 L (132-148) mmol/l Potassium 5.2 H (3.6-5.0) MMOL/L Chloride 95 L (98-107) mmol/L Carbon Dioxide 16 L (22-30) mmol/L Anion Gap 25 H (10-20) BUN 25 H (9-20) mg/dl Creatinine 0.9 (0.8-1.5) mg/dl Est GFR ( Amer) > 60 Est GFR (Non-Af Amer) > 60 POC Glucose (mg/dL) (65-110) mg/dL Random Glucose 715 H* (75-110) mg/dL Calcium 9.8 (8.4-10.2) mg/dL Phosphorus (2.5-4.5) mg/dl Magnesium (1.6-2.3) MG/DL Total Bilirubin 0.7 (0.2-1.3) mg/dl AST 33 (17-59) U/L ALT 54 (21-72) U/L Alkaline Phosphatase 260 H (38-126) U/L Troponin I < 0.0120 (0.00-0.120) ng/mL Total Protein 9.2 H (6.3-8.2) G/DL Albumin 4.4 (3.5-5.0) g/dL Globulin 4.8 H (2.2-3.9) gm/dL Albumin/Globulin Ratio 0.9 L (1.0-2.1) Triglycerides (0-149) mg/DL Cholesterol (0-199) mg/dL LDL Cholesterol Direct (0-129) mg/dL HDL Cholesterol (30-70) MG/DL TSH 3rd Generation (0.46-4.68) mIU/ML Urine Color (YELLOW) Urine Clarity (Clear) Urine pH (5.0-8.0) Ur Specific [place] (1.003-1.030) Urine Protein (NEGATIVE) mg/dL Urine Glucose (UA) (NEGATIVE) mg/dL Urine Ketones (NEGATIVE) mg/dL Urine Blood (NEGATIVE) Urine Nitrate (NEGATIVE) Urine Bilirubin (NEGATIVE) Urine Urobilinogen (0.2-1.0) mg/dL Ur Leukocyte Esterase (Negative) Aaron/uL Urine RBC (Auto) (0-3) /hpf Urine Microscopic WBC (0-5) /hpf 05/25/18 Range/Units 11:53 WBC (4.8-10.8) K/uL RBC (4.40-5.90) Mil/uL Hgb (12.0-18.0) g/dL Hct (35.0-51.0) % MCV (80.0-94.0) fl MCH (27.0-31.0) pg MCHC (33.0-37.0) g/dL RDW (11.5-14.5) % Plt Count (130-400) K/uL MPV (7.2-11.7) fl Neut % (Auto) (50.0-75.0) % Lymph % (Auto) (20.0-40.0) % [place] % (Auto) (0.0-10.0) % Eos % (Auto) (0.0-4.0) % Baso % (Auto) (0.0-2.0) % Neut # (Auto) (1.8-7.0) K/uL Lymph # (Auto) (1.0-4.3) K/uL [place] # (Auto) (0.0-0.8) K/uL Eos # (Auto) (0.0-0.7) K/uL Baso # (Auto) (0.0-0.2) K/uL PT (9.8-13.1) Seconds INR APTT (25.6-37.1) Seconds pO2 (30-55) mm/Hg ABG Carboxyhemoglobin (0.5-1.5) % POC ABG HHb (Measured) (0.0-5.0) % ABG Methemoglobin (0.0-3.0) % VBG pH (7.32-7.43) VBG pCO2 (40-60) mmHg VBG HCO3 mmol/L VBG O2 Sat (Calc) (40-65) % VBG Base Excess (0.0-2.0) mmol/L VBG Hgb O2 Saturation (95.0-98.0) % Hemoglobin (11.7-17.4) g/dL Blood Gas Comments Crit Value Called To Crit Value Called By Crit Value Read Back Blood Gas Notified Time Sodium (132-148) mmol/l Potassium (3.6-5.0) MMOL/L Chloride (98-107) mmol/L Carbon Dioxide (22-30) mmol/L Anion Gap (10-20) BUN (9-20) mg/dl Creatinine (0.8-1.5) mg/dl Est GFR ( Amer) Est GFR (Non-Af Amer) POC Glucose (mg/dL) > 500 H* (65-110) mg/dL Random Glucose (75-110) mg/dL Calcium (8.4-10.2) mg/dL Phosphorus (2.5-4.5) mg/dl Magnesium (1.6-2.3) MG/DL Total Bilirubin (0.2-1.3) mg/dl AST (17-59) U/L ALT (21-72) U/L Alkaline Phosphatase (38-126) U/L Troponin I (0.00-0.120) ng/mL Total Protein (6.3-8.2) G/DL Albumin (3.5-5.0) g/dL Globulin (2.2-3.9) gm/dL Albumin/Globulin Ratio (1.0-2.1) Triglycerides (0-149) mg/DL Cholesterol (0-199) mg/dL LDL Cholesterol Direct (0-129) mg/dL HDL Cholesterol (30-70) MG/DL TSH 3rd Generation (0.46-4.68) mIU/ML Urine Color (YELLOW) Urine Clarity (Clear) Urine pH (5.0-8.0) Ur Specific [place] (1.003-1.030) Urine Protein (NEGATIVE) mg/dL Urine Glucose (UA) (NEGATIVE) mg/dL Urine Ketones (NEGATIVE) mg/dL Urine Blood (NEGATIVE) Urine Nitrate (NEGATIVE) Urine Bilirubin (NEGATIVE) Urine Urobilinogen (0.2-1.0) mg/dL Ur Leukocyte Esterase (Negative) Aaron/uL Urine RBC (Auto) (0-3) /hpf Urine Microscopic WBC (0-5) /hpf Laboratory Results - last 24 hr 05/25/18 05/25/18 05/25/18 11:53 12:05 12:05 WBC 7.9 RBC 5.40 Hgb 15.6 Hct 46.9 MCV 86.8 MCH 28.8 MCHC 33.2 RDW 13.2 Plt Count 174 MPV 9.6 Neut % (Auto) 59.9 Lymph % (Auto) 29.1 [place] % (Auto) 7.9 Eos % (Auto) 1.7 Baso % (Auto) 1.4 Neut # (Auto) 4.7 Lymph # (Auto) 2.3 [place] # (Auto) 0.6 Eos # (Auto) 0.1 Baso # (Auto) 0.1 PT INR APTT pO2 ABG Carboxyhemoglobin POC ABG HHb (Measured) ABG Methemoglobin VBG pH VBG pCO2 VBG HCO3 VBG O2 Sat (Calc) VBG Base Excess VBG Hgb O2 Saturation Hemoglobin Blood Gas Comments Crit Value Called To Crit Value Called By Crit Value Read Back Blood Gas Notified Time Sodium 131 L Potassium 5.2 H Chloride 95 L Carbon Dioxide 16 L Anion Gap 25 H BUN 25 H Creatinine 0.9 Est GFR ( Amer) > 60 Est GFR (Non-Af Amer) > 60 POC Glucose (mg/dL) > 500 H* Random Glucose 715 H* Calcium 9.8 Phosphorus Magnesium Total Bilirubin 0.7 AST 33 ALT 54 Alkaline Phosphatase 260 H Troponin I < 0.0120 Total Protein 9.2 H Albumin 4.4 Globulin 4.8 H Albumin/Globulin Ratio 0.9 L Triglycerides Cholesterol LDL Cholesterol Direct HDL Cholesterol TSH 3rd Generation Urine Color Urine Clarity Urine pH Ur Specific [place] Urine Protein Urine Glucose (UA) Urine Ketones Urine Blood Urine Nitrate Urine Bilirubin Urine Urobilinogen Ur Leukocyte Esterase Urine RBC (Auto) Urine Microscopic WBC 05/25/18 05/25/18 05/25/18 12:05 12:05 12:20 WBC RBC Hgb Hct MCV MCH MCHC RDW Plt Count MPV Neut % (Auto) Lymph % (Auto) [place] % (Auto) Eos % (Auto) Baso % (Auto) Neut # (Auto) Lymph # (Auto) [place] # (Auto) Eos # (Auto) Baso # (Auto) PT 10.5 INR 0.9 APTT 28.3 pO2 38 ABG Carboxyhemoglobin 3.8 H POC ABG HHb (Measured) 21.1 H ABG Methemoglobin 3.1 H VBG pH 7.28 L VBG pCO2 43 VBG HCO3 19.1 VBG O2 Sat (Calc) 77.3 H VBG Base Excess -6.4 L VBG Hgb O2 Saturation 72.0 L Hemoglobin 16.4 Blood Gas Comments Vbg Crit Value Called To Nicole baltazar r.n. Crit Value Called By Tanya Crit Value Read Back Y Blood Gas Notified Time 1216 Sodium Potassium Chloride Carbon Dioxide Anion Gap BUN Creatinine Est GFR ( Amer) Est GFR (Non-Af Amer) POC Glucose (mg/dL) Random Glucose Calcium Phosphorus Magnesium Total Bilirubin AST ALT Alkaline Phosphatase Troponin I Total Protein Albumin Globulin Albumin/Globulin Ratio Triglycerides Cholesterol LDL Cholesterol Direct HDL Cholesterol TSH 3rd Generation Urine Color Straw Urine Clarity Clear Urine pH 6.0 Ur Specific [place] 1.030 Urine Protein Negative Urine Glucose (UA) >=500 Urine Ketones 20 Urine Blood Negative Urine Nitrate Negative Urine Bilirubin Negative Urine Urobilinogen 0.2-1.0 Ur Leukocyte Esterase Neg Urine RBC (Auto) < 1 Urine Microscopic WBC < 1 05/25/18 05/25/18 05/25/18 13:20 14:32 15:29 WBC RBC Hgb Hct MCV MCH MCHC RDW Plt Count MPV Neut % (Auto) Lymph % (Auto) [place] % (Auto) Eos % (Auto) Baso % (Auto) Neut # (Auto) Lymph # (Auto) [place] # (Auto) Eos # (Auto) Baso # (Auto) PT INR APTT pO2 ABG Carboxyhemoglobin POC ABG HHb (Measured) ABG Methemoglobin VBG pH VBG pCO2 VBG HCO3 VBG O2 Sat (Calc) VBG Base Excess VBG Hgb O2 Saturation Hemoglobin Blood Gas Comments Crit Value Called To Crit Value Called By Crit Value Read Back Blood Gas Notified Time Sodium Potassium Chloride Carbon Dioxide Anion Gap BUN Creatinine Est GFR ( Amer) Est GFR (Non-Af Amer) POC Glucose (mg/dL) 494 H* 387 H 365 H Random Glucose Calcium Phosphorus Magnesium Total Bilirubin AST ALT Alkaline Phosphatase Troponin I Total Protein Albumin Globulin Albumin/Globulin Ratio Triglycerides Cholesterol LDL Cholesterol Direct HDL Cholesterol TSH 3rd Generation Urine Color Urine Clarity Urine pH Ur Specific [place] Urine Protein Urine Glucose (UA) Urine Ketones Urine Blood Urine Nitrate Urine Bilirubin Urine Urobilinogen Ur Leukocyte Esterase Urine RBC (Auto) Urine Microscopic WBC 05/25/18 05/25/18 05/25/18 17:00 18:01 18:52 WBC RBC Hgb Hct MCV MCH MCHC RDW Plt Count MPV Neut % (Auto) Lymph % (Auto) [place] % (Auto) Eos % (Auto) Baso % (Auto) Neut # (Auto) Lymph # (Auto) [place] # (Auto) Eos # (Auto) Baso # (Auto) PT INR APTT pO2 ABG Carboxyhemoglobin POC ABG HHb (Measured) ABG Methemoglobin VBG pH VBG pCO2 VBG HCO3 VBG O2 Sat (Calc) VBG Base Excess VBG Hgb O2 Saturation Hemoglobin Blood Gas Comments Crit Value Called To Crit Value Called By Crit Value Read Back Blood Gas Notified Time Sodium Potassium Chloride Carbon Dioxide Anion Gap BUN Creatinine Est GFR ( Amer) Est GFR (Non-Af Amer) POC Glucose (mg/dL) 315 H 302 H 401 H* Random Glucose Calcium Phosphorus Magnesium Total Bilirubin AST ALT Alkaline Phosphatase Troponin I Total Protein Albumin Globulin Albumin/Globulin Ratio Triglycerides Cholesterol LDL Cholesterol Direct HDL Cholesterol TSH 3rd Generation Urine Color Urine Clarity Urine pH Ur Specific [place] Urine Protein Urine Glucose (UA) Urine Ketones Urine Blood Urine Nitrate Urine Bilirubin Urine Urobilinogen Ur Leukocyte Esterase Urine RBC (Auto) Urine Microscopic WBC 05/25/18 05/25/18 05/25/18 19:45 19:57 21:02 WBC RBC Hgb Hct MCV MCH MCHC RDW Plt Count MPV Neut % (Auto) Lymph % (Auto) [place] % (Auto) Eos % (Auto) Baso % (Auto) Neut # (Auto) Lymph # (Auto) [place] # (Auto) Eos # (Auto) Baso # (Auto) PT INR APTT pO2 ABG Carboxyhemoglobin POC ABG HHb (Measured) ABG Methemoglobin VBG pH VBG pCO2 VBG HCO3 VBG O2 Sat (Calc) VBG Base Excess VBG Hgb O2 Saturation Hemoglobin Blood Gas Comments Crit Value Called To Crit Value Called By Crit Value Read Back Blood Gas Notified Time Sodium 135 Potassium 4.0 Chloride 103 Carbon Dioxide 21 L Anion Gap 15 BUN 19 Creatinine 0.9 Est GFR ( Amer) > 60 Est GFR (Non-Af Amer) > 60 POC Glucose (mg/dL) 302 H 240 H Random Glucose 332 H Calcium 8.6 Phosphorus Magnesium Total Bilirubin 0.4 AST 26 ALT 41 Alkaline Phosphatase 160 H D Troponin I Total Protein 7.6 Albumin 3.7 Globulin 4.0 H Albumin/Globulin Ratio 0.9 L Triglycerides Cholesterol LDL Cholesterol Direct HDL Cholesterol TSH 3rd Generation Urine Color Urine Clarity Urine pH Ur Specific [place] Urine Protein Urine Glucose (UA) Urine Ketones Urine Blood Urine Nitrate Urine Bilirubin Urine Urobilinogen Ur Leukocyte Esterase Urine RBC (Auto) Urine Microscopic WBC 05/25/18 05/25/18 05/26/18 21:59 23:11 05:30 WBC RBC Hgb Hct MCV MCH MCHC RDW Plt Count MPV Neut % (Auto) Lymph % (Auto) [place] % (Auto) Eos % (Auto) Baso % (Auto) Neut # (Auto) Lymph # (Auto) [place] # (Auto) Eos # (Auto) Baso # (Auto) PT INR APTT pO2 ABG Carboxyhemoglobin POC ABG HHb (Measured) ABG Methemoglobin VBG pH VBG pCO2 VBG HCO3 VBG O2 Sat (Calc) VBG Base Excess VBG Hgb O2 Saturation Hemoglobin Blood Gas Comments Crit Value Called To Crit Value Called By Crit Value Read Back Blood Gas Notified Time Sodium 135 Potassium 4.2 Chloride 105 Carbon Dioxide 21 L Anion Gap 13 BUN 13 Creatinine 0.7 L Est GFR ( Amer) > 60 Est GFR (Non-Af Amer) > 60 POC Glucose (mg/dL) 231 H 221 H Random Glucose 267 H Calcium 7.8 L Phosphorus 2.5 Magnesium 1.5 L Total Bilirubin 0.4 AST 34 ALT 49 Alkaline Phosphatase 108 Troponin I Total Protein 6.8 Albumin 3.1 L Globulin 3.7 Albumin/Globulin Ratio 0.8 L Triglycerides 862 H Cholesterol 227 H LDL Cholesterol Direct 46 HDL Cholesterol 27 L TSH 3rd Generation 8.86 H Urine Color Urine Clarity Urine pH Ur Specific [place] Urine Protein Urine Glucose (UA) Urine Ketones Urine Blood Urine Nitrate Urine Bilirubin Urine Urobilinogen Ur Leukocyte Esterase Urine RBC (Auto) Urine Microscopic WBC 05/26/18 05:42 WBC RBC Hgb Hct MCV MCH MCHC RDW Plt Count MPV Neut % (Auto) Lymph % (Auto) [place] % (Auto) Eos % (Auto) Baso % (Auto) Neut # (Auto) Lymph # (Auto) [place] # (Auto) Eos # (Auto) Baso # (Auto) PT INR APTT pO2 ABG Carboxyhemoglobin POC ABG HHb (Measured) ABG Methemoglobin VBG pH VBG pCO2 VBG HCO3 VBG O2 Sat (Calc) VBG Base Excess VBG Hgb O2 Saturation Hemoglobin Blood Gas Comments Crit Value Called To Crit Value Called By Crit Value Read Back Blood Gas Notified Time Sodium Potassium Chloride Carbon Dioxide Anion Gap BUN Creatinine Est GFR ( Amer) Est GFR (Non-Af Amer) POC Glucose (mg/dL) 224 H Random Glucose Calcium Phosphorus Magnesium Total Bilirubin AST ALT Alkaline Phosphatase Troponin I Total Protein Albumin Globulin Albumin/Globulin Ratio Triglycerides Cholesterol LDL Cholesterol Direct HDL Cholesterol TSH 3rd Generation Urine Color Urine Clarity Urine pH Ur Specific [place] Urine Protein Urine Glucose (UA) Urine Ketones Urine Blood Urine Nitrate Urine Bilirubin Urine Urobilinogen Ur Leukocyte Esterase Urine RBC (Auto) Urine Microscopic WBC EKG/Cardiology Studies: Cardiology / EKG Studies 05/25/18 11:56 EKG [ELECTROCARDIOGRAM] Stat Comment: Mode Of Transportation: PORTABLE Reason For Exam: SOB Fingerstick Blood Sugar Results: 221 Critical Care Progress Note - Nutrition Nutrition: Nutrition Category Date Time Status Consistent Carbohydrate [DIET] Diets 05/25/18 Dinner Active Assessment/Plan - Assessment and Plan (Free Text) Assessment: DKA Hyperglycemia HTN Obesity Plan: Transfer to floor DC IVf On novolin and determir insulin started Valsartan for BP, 160 mg daily transfer to floor.
[2018-05-26] MEDS: Insulin Lispro (humaLOG) 100 Units/ml Inj SC SCH ×5 (11:26→22:45)
[2018-05-26] MEDS: POLYETHYLENE GLYCOL 3350 17 GM/Dose PACKET PO PRN (11:29)
--- NOTE | 2018-05-26 14:06 | PN ---
DATE: 05/26/2018 ENDO FOLLOWUP LOCATION: In room 430 ICU. SUBJECTIVE: This is a 42-year-old male with recent diagnosis of uncontrolled type 2 insulin-requiring diabetes presenting here with marked hyperglycemic accelerations and dehydration and has been admitted to ICU for closer metabolic and hemodynamic monitoring. He received vigorous IV hydration and intensive insulin therapy with an insulin drip infusion which was discontinued at midnight last night. His glycemic levels are fluctuating but improved and the overnight glucose levels have ranged from 221-231 and 240 mg/dL. It was 302 at dinnertime last night. LABORATORY DATA: His chemistry showed a BUN of 13, sodium 135, potassium 4.2, chloride 105, CO2 of 21, glucose 267 and creatinine 0.7. His triglycerides are extremely elevated at 862 with cholesterol of 227 and HDL of 27. His TSH level is 8.86. Again also elevated. ASSESSMENT: This is a 42-year-old male with uncontrolled and decompensated type 2 insulin-requiring diabetes of recent evaluation and diagnosis, presenting here with hyperosmolar hyperglycemic state and with associated metabolic acidosis and the mild ketosis with concomitant clinical and biochemical evidence of dehydration and prerenal azotemia with spurious hyponatremia that has improved dramatically overnight as noted. He also has marked dyslipidemia which is expected in patients who are newly diagnosed because of the impaired lipoprotein lipase activity with relative insulin deficiency. Moreover, he also has overt hypothyroidism which is not surprising in terms of the close association with type 2 diabetes in terms of underlying autoimmunity. He most likely has autoimmune thyroiditis as noted. Moreover, he has also underlying obesity, which could contribute to the increased insulin resistance and further impaired glucose tolerance thereof. PLAN OF MANAGEMENT: We will continue the vigorous IV hydration which is probably the most important modality of treatment for hyperosmolar states to fully replenish his lost fluids and electrolytes and the increased osmotic diuresis thereof. We will also switch him over to a more physiologic basal and bolus insulin drug combination starting today and he was given a stat dose of Levemir at 20 units last night as given. We will start him with Humalog given as 8 units subcu t.i.d. before meals to start at lunchtime today as ordered. We will modify the coverage scale to obviate hypoglycemia and detailed orders have been given. We will also add basal insulin tonight with Levemir given as 24 units subcu at bedtime daily as ordered. We will titrate incrementally to optimize metabolic control. We will also initiate diabetic education and dietary instructions to include insulin self-administration and home glucose monitoring accordingly. We will also reinforce weight loss efforts and adherence to healthier food choices and we are awaiting a dietary evaluation today or tomorrow. We will also start levothyroxine at 75 mcg once daily before breakfast to start tomorrow morning and a comprehensive thyroid hormonal profile will be undertaken to include thyroid antibodies which will confirm and/or indicate the presence of underlying thyroid autoimmunity. We will obtain serial chemistries and supplement accordingly as needed. We will follow. Barbie Head MD
--- NOTE | 2018-05-26 14:07 | CP.PCM.HP ---
History of Present Illness - History of Present Illness History of Present Illness: pt admitted for dka, was initially on insulin gtt but dc by icu yesterday. no f/c, n/v/d. no compiants. bw noted. Present on Admission - Present on Admission Any Indicators Present on Admission: Yes History of Uncontrolled Diabetes: Yes Review of Systems - Endocrine Endocrine: As Per HPI Past Patient History - Past Medical History & Family History Past Medical History?: No - Past Social History Smoking Status: Heavy Smoker > 10 Cigarettes Daily - CARDIAC Hx Cardiac Disorders: Yes - PULMONARY Hx Respiratory Disorders: No - NEUROLOGICAL Hx Neurological Disorder: No - HEENT Hx HEENT Problems: No - RENAL Hx Chronic Kidney Disease: No - ENDOCRINE/METABOLIC Hx Endocrine Disorders: Yes - HEMATOLOGICAL/ONCOLOGICAL Hx Blood Disorders: No Hx AIDS: No Hx Human Immunodeficiency Virus (HIV): No - INTEGUMENTARY Hx Dermatological Problems: No - MUSCULOSKELETAL/RHEUMATOLOGICAL Hx Musculoskeletal Disorders: No Hx Falls: No - GENITOURINARY/GYNECOLOGICAL Hx Genitourinary Disorders: No - PSYCHIATRIC Hx Psychophysiologic Disorder: No Hx Substance Use: No - SURGICAL HISTORY Hx Surgeries: No - ANESTHESIA Hx Anesthesia: No Meds Allergies/Adverse Reactions: Allergies Allergy/AdvReac Type Severity Reaction Status Date / Time No Known Allergies Allergy Verified 05/25/18 11:29 Physical Exam - Constitutional Appears: Well, Non-toxic, No Acute Distress - Head Exam Head Exam: ATRAUMATIC, NORMAL INSPECTION, NORMOCEPHALIC - Eye Exam Eye Exam: EOMI, Normal appearance, PERRL Pupil Exam: NORMAL ACCOMODATION, PERRL - ENT Exam ENT Exam: Mucous Membranes Moist, Normal Exam - Neck Exam Neck exam: Positive for: Normal Inspection - Respiratory Exam Respiratory Exam: Clear to Auscultation Bilateral, NORMAL BREATHING PATTERN - Cardiovascular Exam Cardiovascular Exam: REGULAR RHYTHM, RRR, +S1, +S2 - GI/Abdominal Exam GI & Abdominal Exam: Normal Bowel Sounds, Soft. absent: Tenderness - Extremities Exam Extremities exam: Positive for: full ROM, normal capillary refill, normal inspection, pedal pulses present - Back Exam Back exam: NORMAL INSPECTION - Neurological Exam Neurological exam: Alert, CN II-XII Intact, Normal Gait, Oriented x3, Reflexes Normal - Psychiatric Exam Psychiatric exam: Normal Affect, Normal Mood - Skin Skin Exam: Dry, Intact, Normal Color, Warm Results - Vital Signs Recent Vital Signs: Last Vital Signs Temp 98.1 F 05/26/18 08:00 Pulse 74 05/26/18 12:08 Resp 19 05/26/18 10:00 BP 137/85 05/26/18 12:08 Pulse Ox 98 05/26/18 10:00 - Labs Result Diagrams: 05/25/18 12:05 05/26/18 05:30 Labs: Laboratory Results - last 24 hr 05/25/18 05/25/18 05/25/18 12:05 14:32 15:29 Sodium Potassium 5.2 H Chloride Carbon Dioxide Anion Gap BUN Creatinine Est GFR ( Amer) Est GFR (Non-Af Amer) POC Glucose (mg/dL) 387 H 365 H Random Glucose Hemoglobin A1c Calcium Phosphorus Magnesium Total Bilirubin AST ALT Alkaline Phosphatase Total Protein Albumin Globulin Albumin/Globulin Ratio Triglycerides Cholesterol LDL Cholesterol Direct HDL Cholesterol TSH 3rd Generation 05/25/18 05/25/18 05/25/18 17:00 18:01 18:52 Sodium Potassium Chloride Carbon Dioxide Anion Gap BUN Creatinine Est GFR ( Amer) Est GFR (Non-Af Amer) POC Glucose (mg/dL) 315 H 302 H 401 H* Random Glucose Hemoglobin A1c Calcium Phosphorus Magnesium Total Bilirubin AST ALT Alkaline Phosphatase Total Protein Albumin Globulin Albumin/Globulin Ratio Triglycerides Cholesterol LDL Cholesterol Direct HDL Cholesterol TSH 3rd Generation 05/25/18 05/25/18 05/25/18 19:45 19:57 21:02 Sodium 135 Potassium 4.0 Chloride 103 Carbon Dioxide 21 L Anion Gap 15 BUN 19 Creatinine 0.9 Est GFR ( Amer) > 60 Est GFR (Non-Af Amer) > 60 POC Glucose (mg/dL) 302 H 240 H Random Glucose 332 H Hemoglobin A1c Calcium 8.6 Phosphorus Magnesium Total Bilirubin 0.4 AST 26 ALT 41 Alkaline Phosphatase 160 H D Total Protein 7.6 Albumin 3.7 Globulin 4.0 H Albumin/Globulin Ratio 0.9 L Triglycerides Cholesterol LDL Cholesterol Direct HDL Cholesterol TSH 3rd Generation 05/25/18 05/25/18 05/26/18 21:59 23:11 05:30 Sodium 135 Potassium 4.2 Chloride 105 Carbon Dioxide 21 L Anion Gap 13 BUN 13 Creatinine 0.7 L Est GFR ( Amer) > 60 Est GFR (Non-Af Amer) > 60 POC Glucose (mg/dL) 231 H 221 H Random Glucose 267 H Hemoglobin A1c Calcium 7.8 L Phosphorus 2.5 Magnesium 1.5 L Total Bilirubin 0.4 AST 34 ALT 49 Alkaline Phosphatase 108 Total Protein 6.8 Albumin 3.1 L Globulin 3.7 Albumin/Globulin Ratio 0.8 L Triglycerides 862 H Cholesterol 227 H LDL Cholesterol Direct 46 HDL Cholesterol 27 L TSH 3rd Generation 8.86 H 05/26/18 05/26/18 05/26/18 05:30 05:42 11:07 Sodium Potassium Chloride Carbon Dioxide Anion Gap BUN Creatinine Est GFR ( Amer) Est GFR (Non-Af Amer) POC Glucose (mg/dL) 224 H 359 H Random Glucose Hemoglobin A1c 13.3 H Calcium Phosphorus Magnesium Total Bilirubin AST ALT Alkaline Phosphatase Total Protein Albumin Globulin Albumin/Globulin Ratio Triglycerides Cholesterol LDL Cholesterol Direct HDL Cholesterol TSH 3rd Generation Assessment & Plan (1) DKA (diabetic ketoacidoses) Assessment and Plan: off insulin gtt, cont diet, fsbg, riss, levemir, endo Status: Acute (2) DVT prophylaxis Assessment and Plan: scd ted e hose lovenox Status: Acute - Assessment and Plan (Free Text) Assessment: htn-cozaar started, monitor Decision To Admit - Pt Status Changed To: Hospital Disposition Of: Inpatient - Admit Certification Admit to Inpatient:: After my assessment, the patient will require hospitalization for at least two midnights. This is because of the severity of symptoms shown, intensity of services needed, and/or the medical risk in this patient being treated as an outpatient. - . Bed Request Type: Intensive Care Admitting Physician: Min Thompson
[2018-05-26] MEDS: Hydrocortisone 2.5% (Rectal) CREAM PR SCH (16:36)
--- NOTE | 2018-05-26 17:10 | CARD ---
APPROVED REPORT Date of service: 05/25/2018 EKG Measurement Heart [id number] <Conclusion> Normal sinus rhythm Normal ECG
[2018-05-26] MEDS ORDERED: Insulin Detemir 100 Units/ml Inj SC SCH ×2 (22:00)
[2018-05-27 05:52] LABS: BASO # 0.1 K/uL (0.0-0.2); BASO % 0.8 % (0.0-2.0); EOS # 0.3 K/uL (0.0-0.7); EOS % 3.6 % (0.0-4.0); HEMOGLOBIN 13.9 g/dL (12.0-18.0); LYMPH # 2.8 K/uL (1.0-4.3); LYMPH % 37.6 % (20.0-40.0); MEAN CELL VOLUME 84.8 fl (80.0-94.0); MEAN CORPUSCULAR HEMOGLOBIN 28.3 pg (27.0-31.0); MEAN CORPUSCULAR HGB CONC 33.3 g/dL (33.0-37.0); MEAN PLATELET VOLUME 9.2 fl (7.2-11.7); MONO # 0.5 K/uL (0.0-0.8); MONO % 6.7 % (0.0-10.0); NEUT # 3.8 K/uL (1.8-7.0); NEUT % 51.3 % (50.0-75.0); NRBC % 0.1 % (0.0-0.0); RBC 4.94 Mil/uL (4.40-5.90); WHITE BLOOD COUNT 7.5 K/uL (4.8-10.8)
[2018-05-27 06:11] LABS: T4 4.18 ug/dl (5.5-11.0)
[2018-05-27 06:18] LABS: BLOOD UREA NITROGEN 10 mg/dl (9-20)
[2018-05-27 06:19] LABS: ALB/GLOB RATIO 0.9 (1.0-2.1); ALBUMIN 3.4 g/dL (3.5-5.0); ALT/SGPT 62 U/L (21-72); AST/SGOT 38 U/L (17-59); CALCIUM 8.4 mg/dL (8.4-10.2); GFR NON-AFRICAN AMERICAN > 60
[2018-05-27] MEDS ORDERED: Levothyroxine 75 MCG TAB PO SCH (06:30)
[2018-05-27] MEDS: Insulin Lispro (humaLOG) 100 Units/ml Inj SC SCH ×4 (06:42→12:16)
--- NOTE | 2018-05-27 07:39 | CP.CCUPN ---
CCU Subjective - Physician Review Events Since Last Encounter (Free Text): 05/27/18 12:05 The patient was seen and examined at the bedside, medical records reviewed, and management issues were discussed and formulated with the house staff. Events reviewed. Alert and oriented Patient has been hemodynamically stable and feeling great No new complains, no CP, SOB, nausea/vomiting or abdominal pain. Pt has been off insulin drip since Sunday. CCU Objective - Vital Signs / Intake & Output Intake and Output (Last 8hrs): Intake & Output 05/26/18 05/27/18 05/27/18 22:59 06:59 14:59 Intake Total 2250 300 Output Total 1300 2150 Balance 950 -1850 Weight 254 lb Intake: IV 2250 300 Output: Urine 1300 2150 Urine, Voided 1300 2150 Other: # Voids Urine, Voided 1 # Bowel Movements 1 - Physical Exam Head: Positive for: Atraumatic, Normocephalic Pupils: Positive for: PERRL Extroacular Muscles: Positive for: EOMI Conjunctiva: Positive for: Normal. Negative for: Injected, Icteric Ears: Positive for: Normal Mouth: Positive for: Moist Mucous Membranes Nose (Internal): Positive for: Normal Inspection Neck: Positive for: Normal Range of Motion, Trachea Midline. Negative for: Meningeal Signs, MIDLINE TENDERNESS, Paraspinal Tenderness, JVD, Lymphadenopathy, Bruit, Other Respiratory/Chest: Positive for: Clear to Auscultation, Good Air Exchange. Negative for: Respiratory Distress, Accessory Muscle Use Cardiovascular: Positive for: Regular Rate and Rhythm, Normal S1, S2, Peripheal Pulses Present. Negative for: Murmurs Abdomen: Positive for: Normal Bowel Sounds. Negative for: Tenderness, Distention Back: Negative for: CVA Tenderness Neurological: Positive for: GCS=15, CN II-XII Intact, Speech Normal, Motor Func Grossly Intact, Normal Sensory Function Psychiatric: Positive for: Alert, Oriented x 3 - Medications Active Medications: Active Medications Generic Name Dose Route Start Last Admin Trade Name Freq PRN Reason Stop Dose Admin Enoxaparin Sodium 40 mg 05/25/18 15:45 05/26/18 09:02 Lovenox SC 05/31/18 12:00 40 mg DAILY MARY Administration Protocol Hydrocortisone 1 applic 05/26/18 17:00 05/26/18 16:36 Anusol-Hc AL 1 applic BID MARY Administration Insulin Detemir 30 units 05/26/18 22:00 05/26/18 22:55 Levemir SC 30 units HS MARY Administration Insulin Human Lispro 0 units 05/26/18 11:30 05/27/18 06:43 Humalog SC Not Given ACHS MARY Protocol Insulin Human Lispro 12 units 05/27/18 07:30 05/27/18 06:42 Humalog SC 12 units AC MARY Administration Levothyroxine Sodium 75 mcg 05/27/18 06:30 05/27/18 06:42 Synthroid PO 75 mcg DAILY@0630 MARY Administration Losartan Potassium 50 mg 05/26/18 10:15 05/26/18 12:08 Cozaar PO 50 mg DAILY MARY Administration Polyethylene Glycol 17 gm 05/25/18 20:17 05/26/18 11:29 Miralax PO 17 gm DAILY PRN Administration Constipation - Patient Studies Lab Studies: Microbiology Studies 05/25/18 17:00 MRSA Culture (Admit) - Final Naris MRSA NOT DETECTED Lab Studies 05/27/18 05/27/18 05/27/18 Range/Units 06:01 04:50 04:50 WBC 7.5 (4.8-10.8) K/uL RBC 4.94 (4.40-5.90) Mil/uL Hgb 13.9 (12.0-18.0) g/dL Hct 41.8 (35.0-51.0) % MCV 84.8 D (80.0-94.0) fl MCH 28.3 (27.0-31.0) pg MCHC 33.3 (33.0-37.0) g/dL RDW 13.0 (11.5-14.5) % Plt Count 139 (130-400) K/uL MPV 9.2 (7.2-11.7) fl Neut % (Auto) 51.3 (50.0-75.0) % Lymph % (Auto) 37.6 (20.0-40.0) % [place] % (Auto) 6.7 (0.0-10.0) % Eos % (Auto) 3.6 (0.0-4.0) % Baso % (Auto) 0.8 (0.0-2.0) % Neut # (Auto) 3.8 (1.8-7.0) K/uL Lymph # (Auto) 2.8 (1.0-4.3) K/uL [place] # (Auto) 0.5 (0.0-0.8) K/uL Eos # (Auto) 0.3 (0.0-0.7) K/uL Baso # (Auto) 0.1 (0.0-0.2) K/uL Sodium (132-148) mmol/l Potassium (3.6-5.0) MMOL/L Chloride (98-107) mmol/L Carbon Dioxide (22-30) mmol/L Anion Gap (10-20) BUN (9-20) mg/dl Creatinine (0.8-1.5) mg/dl Est GFR ( Amer) Est GFR (Non-Af Amer) POC Glucose (mg/dL) 226 H (65-110) mg/dL Random Glucose (75-110) mg/dL Hemoglobin A1c (4.2-6.5) % Calcium (8.4-10.2) mg/dL Phosphorus (2.5-4.5) mg/dl Total Bilirubin (0.2-1.3) mg/dl AST (17-59) U/L ALT (21-72) U/L Alkaline Phosphatase (38-126) U/L Total Protein (6.3-8.2) G/DL Albumin (3.5-5.0) g/dL Globulin (2.2-3.9) gm/dL Albumin/Globulin Ratio (1.0-2.1) Free T4 0.70 L (0.78-2.19) ng/dL Thyroxine (T4) (5.5-11.0) ug/dl TSH 3rd Generation (0.46-4.68) mIU/ML 05/27/18 05/26/18 05/26/18 Range/Units 04:50 22:40 14:59 WBC (4.8-10.8) K/uL RBC (4.40-5.90) Mil/uL Hgb (12.0-18.0) g/dL Hct (35.0-51.0) % MCV (80.0-94.0) fl MCH (27.0-31.0) pg MCHC (33.0-37.0) g/dL RDW (11.5-14.5) % Plt Count (130-400) K/uL MPV (7.2-11.7) fl Neut % (Auto) (50.0-75.0) % Lymph % (Auto) (20.0-40.0) % [place] % (Auto) (0.0-10.0) % Eos % (Auto) (0.0-4.0) % Baso % (Auto) (0.0-2.0) % Neut # (Auto) (1.8-7.0) K/uL Lymph # (Auto) (1.0-4.3) K/uL [place] # (Auto) (0.0-0.8) K/uL Eos # (Auto) (0.0-0.7) K/uL Baso # (Auto) (0.0-0.2) K/uL Sodium 136 (132-148) mmol/l Potassium 4.2 (3.6-5.0) MMOL/L Chloride 105 (98-107) mmol/L Carbon Dioxide 23 (22-30) mmol/L Anion Gap 12 (10-20) BUN 10 (9-20) mg/dl Creatinine 0.7 L (0.8-1.5) mg/dl Est GFR ( Amer) > 60 Est GFR (Non-Af Amer) > 60 POC Glucose (mg/dL) 296 H 297 H (65-110) mg/dL Random Glucose 263 H (75-110) mg/dL Hemoglobin A1c (4.2-6.5) % Calcium 8.4 (8.4-10.2) mg/dL Phosphorus 2.5 (2.5-4.5) mg/dl Total Bilirubin 0.4 (0.2-1.3) mg/dl AST 38 (17-59) U/L ALT 62 (21-72) U/L Alkaline Phosphatase 103 (38-126) U/L Total Protein 7.2 (6.3-8.2) G/DL Albumin 3.4 L (3.5-5.0) g/dL Globulin 3.8 (2.2-3.9) gm/dL Albumin/Globulin Ratio 0.9 L (1.0-2.1) Free T4 (0.78-2.19) ng/dL Thyroxine (T4) 4.18 L (5.5-11.0) ug/dl TSH 3rd Generation 13.60 H (0.46-4.68) mIU/ML 05/26/18 05/26/18 Range/Units 11:07 05:30 WBC (4.8-10.8) K/uL RBC (4.40-5.90) Mil/uL Hgb (12.0-18.0) g/dL Hct (35.0-51.0) % MCV (80.0-94.0) fl MCH (27.0-31.0) pg MCHC (33.0-37.0) g/dL RDW (11.5-14.5) % Plt Count (130-400) K/uL MPV (7.2-11.7) fl Neut % (Auto) (50.0-75.0) % Lymph % (Auto) (20.0-40.0) % [place] % (Auto) (0.0-10.0) % Eos % (Auto) (0.0-4.0) % Baso % (Auto) (0.0-2.0) % Neut # (Auto) (1.8-7.0) K/uL Lymph # (Auto) (1.0-4.3) K/uL [place] # (Auto) (0.0-0.8) K/uL Eos # (Auto) (0.0-0.7) K/uL Baso # (Auto) (0.0-0.2) K/uL Sodium (132-148) mmol/l Potassium (3.6-5.0) MMOL/L Chloride (98-107) mmol/L Carbon Dioxide (22-30) mmol/L Anion Gap (10-20) BUN (9-20) mg/dl Creatinine (0.8-1.5) mg/dl Est GFR ( Amer) Est GFR (Non-Af Amer) POC Glucose (mg/dL) 359 H (65-110) mg/dL Random Glucose (75-110) mg/dL Hemoglobin A1c 13.3 H (4.2-6.5) % Calcium (8.4-10.2) mg/dL Phosphorus (2.5-4.5) mg/dl Total Bilirubin (0.2-1.3) mg/dl AST (17-59) U/L ALT (21-72) U/L Alkaline Phosphatase (38-126) U/L Total Protein (6.3-8.2) G/DL Albumin (3.5-5.0) g/dL Globulin (2.2-3.9) gm/dL Albumin/Globulin Ratio (1.0-2.1) Free T4 (0.78-2.19) ng/dL Thyroxine (T4) (5.5-11.0) ug/dl TSH 3rd Generation (0.46-4.68) mIU/ML Laboratory Results - last 24 hr 05/26/18 05/26/18 05/26/18 05:30 11:07 14:59 WBC RBC Hgb Hct MCV MCH MCHC RDW Plt Count MPV Neut % (Auto) Lymph % (Auto) [place] % (Auto) Eos % (Auto) Baso % (Auto) Neut # (Auto) Lymph # (Auto) [place] # (Auto) Eos # (Auto) Baso # (Auto) Sodium Potassium Chloride Carbon Dioxide Anion Gap BUN Creatinine Est GFR ( Amer) Est GFR (Non-Af Amer) POC Glucose (mg/dL) 359 H 297 H Random Glucose Hemoglobin A1c 13.3 H Calcium Phosphorus Total Bilirubin AST ALT Alkaline Phosphatase Total Protein Albumin Globulin Albumin/Globulin Ratio Free T4 Thyroxine (T4) TSH 3rd Generation 05/26/18 05/27/18 05/27/18 22:40 04:50 04:50 WBC RBC Hgb Hct MCV MCH MCHC RDW Plt Count MPV Neut % (Auto) Lymph % (Auto) [place] % (Auto) Eos % (Auto) Baso % (Auto) Neut # (Auto) Lymph # (Auto) [place] # (Auto) Eos # (Auto) Baso # (Auto) Sodium 136 Potassium 4.2 Chloride 105 Carbon Dioxide 23 Anion Gap 12 BUN 10 Creatinine 0.7 L Est GFR ( Amer) > 60 Est GFR (Non-Af Amer) > 60 POC Glucose (mg/dL) 296 H Random Glucose 263 H Hemoglobin A1c Calcium 8.4 Phosphorus 2.5 Total Bilirubin 0.4 AST 38 ALT 62 Alkaline Phosphatase 103 Total Protein 7.2 Albumin 3.4 L Globulin 3.8 Albumin/Globulin Ratio 0.9 L Free T4 0.70 L Thyroxine (T4) 4.18 L TSH 3rd Generation 13.60 H 05/27/18 05/27/18 04:50 06:01 WBC 7.5 RBC 4.94 Hgb 13.9 Hct 41.8 MCV 84.8 D MCH 28.3 MCHC 33.3 RDW 13.0 Plt Count 139 MPV 9.2 Neut % (Auto) 51.3 Lymph % (Auto) 37.6 [place] % (Auto) 6.7 Eos % (Auto) 3.6 Baso % (Auto) 0.8 Neut # (Auto) 3.8 Lymph # (Auto) 2.8 [place] # (Auto) 0.5 Eos # (Auto) 0.3 Baso # (Auto) 0.1 Sodium Potassium Chloride Carbon Dioxide Anion Gap BUN Creatinine Est GFR ( Amer) Est GFR (Non-Af Amer) POC Glucose (mg/dL) 226 H Random Glucose Hemoglobin A1c Calcium Phosphorus Total Bilirubin AST ALT Alkaline Phosphatase Total Protein Albumin Globulin Albumin/Globulin Ratio Free T4 Thyroxine (T4) TSH 3rd Generation Fingerstick Blood Sugar Results: 226 Review of Systems - Cardiovascular Cardiovascular: absent: As Per HPI, Acrocyanosis, Chest Pain, Chest Pain at Rest, Chest Pain with Activity, Claudication, Diaphoresis, Dyspnea, Dyspnea on Exertion, Edema, Irregular Heart Rhythm, Pain Radiating to Arm/Neck/Jaw, Leg Edema, Leg Ulcers, Lightheadedness, Orthopnea, Palpitations, Paroxysmal Nocturnal Dyspnea, Pedal Edema, Radiating Pain, Rapid Heart Rate, Slow Heart Rate, Syncope, Other, UNREMARKABLE - Respiratory Respiratory: absent: As Per HPI, Cough, Dyspnea, Hemoptysis, Dyspnea on Exertion, Wheezing, Snoring, Stridor, Pain on Inspiration, Chest Congestion, Excessive Mucous Production, Change in Mucous Color, Pain with Coughing, Other, UNREMARKABLE Critical Care Progress Note - Extremities/Vascular Does the Patient have a Central Venous Catheter?: No Does the Patient need a Central Venous Catheter?: No Does the Patient have a Beard Catheter?: No Does the Patient need a Beard Catheter?: No - Nutrition Nutrition: Nutrition Category Date Time Status Consistent Carbohydrate [DIET] Diets 05/25/18 Dinner Active Assessment/Plan (1) DKA (diabetic ketoacidoses) Current Visit: Yes Status: Acute Priority: High (2) Asthma Current Visit: No Status: Chronic Priority: Medium (3) Obesity Current Visit: No Status: Chronic Priority: Medium (4) HTN (hypertension) Current Visit: No Status: Chronic Priority: Medium (5) DVT prophylaxis Current Visit: Yes Status: Acute Priority: High - Assessment and Plan (Free Text) Assessment: Patient has been hemodynamically stable Of insulin drip DC IV fluids On novolin and determir insulin started Valsartan for BP, 160 mg daily Stable for transfer to floor.
[2018-05-27 08:22] VITALS: BP 144/80; PULSE 76; RESP 18; TEMP 98.1; O2SAT 99
[2018-05-27] MEDS: Enoxaparin 40 mg Syringe SC SCH (09:21)
[2018-05-27] MEDS: Hydrocortisone 2.5% (Rectal) CREAM PR SCH (10:18)
[2018-05-27] MEDS: POLYETHYLENE GLYCOL 3350 17 GM/Dose PACKET PO PRN (10:18)
--- NOTE | 2018-05-27 10:47 | CP.PCM.PN ---
Subjective - Date & Time of Evaluation Date of Evaluation: 05/27/18 Time of Evaluation: 10:45 - Subjective Subjective: pt doing well. no f/c, n/v/d. bw noted. tsh and a1c elevated. pending endo and dm educator for clearance and dc. Objective - Vital Signs/Intake and Output Vital Signs (last 24 hours): Temp Pulse Resp BP Pulse Ox 98.1 F 76 18 144/80 99 05/27/18 08:00 05/27/18 09:20 05/27/18 08:00 05/27/18 09:20 05/27/18 08:00 Intake and Output: 05/27/18 05/27/18 06:59 18:59 Intake Total 750 Output Total 2150 Balance -1400 - Medications Medications: Current Medications Enoxaparin Sodium (Lovenox) 40 mg SC DAILY [facility]; Protocol Stop: 05/31/18 12:00 Last Admin: 05/27/18 09:21 Dose: 40 mg Hydrocortisone (Anusol-Hc) 1 applic [place] BID [facility] Last Admin: 05/27/18 10:18 Dose: 1 applic Insulin Detemir (Levemir) 30 units SC HS [facility] Last Admin: 05/26/18 22:55 Dose: 30 units Insulin Human Lispro (Humalog) 0 units SC ACHS [facility]; Protocol Last Admin: 05/27/18 06:43 Dose: Not Given Insulin Human Lispro (Humalog) 12 units SC AC [facility] Last Admin: 05/27/18 06:42 Dose: 12 units Levothyroxine Sodium (Synthroid) 75 mcg PO DAILY@0630 [facility] Last Admin: 05/27/18 06:42 Dose: 75 mcg Losartan Potassium (Cozaar) 50 mg PO DAILY [facility] Last Admin: 05/27/18 09:20 Dose: 50 mg Polyethylene Glycol (Miralax) 17 gm PO DAILY PRN PRN Reason: Constipation Last Admin: 05/27/18 10:18 Dose: 17 gm - Labs Labs: 05/27/18 04:50 05/27/18 04:50 PT 10.5 Seconds (9.8-13.1) 05/25/18 12:05 INR 0.9 05/25/18 12:05 APTT 28.3 Seconds (25.6-37.1) 05/25/18 12:05 - Constitutional Appears: Well, Non-toxic, No Acute Distress - Head Exam Head Exam: ATRAUMATIC, NORMAL INSPECTION, NORMOCEPHALIC - Eye Exam Eye Exam: EOMI, Normal appearance, PERRL Pupil Exam: NORMAL ACCOMODATION, PERRL - ENT Exam ENT Exam: Mucous Membranes Moist, Normal Exam - Neck Exam Neck Exam: Full ROM, Normal Inspection. absent: Lymphadenopathy - Respiratory Exam Respiratory Exam: Clear to Ausculation Bilateral, NORMAL BREATHING PATTERN - Cardiovascular Exam Cardiovascular Exam: REGULAR RHYTHM, RRR, +S1, +S2. absent: Murmur - GI/Abdominal Exam GI & Abdominal Exam: Soft, Normal Bowel Sounds. absent: Tenderness - Extremities Exam Extremities Exam: Full ROM, Normal Capillary Refill, Normal Inspection. absent: Joint Swelling, Pedal Edema - Back Exam Back Exam: NORMAL INSPECTION - Neurological Exam Neurological Exam: Alert, Awake, CN II-XII Intact, Normal Gait, Oriented x3 - Psychiatric Exam Psychiatric exam: Normal Affect, Normal Mood - Skin Skin Exam: Dry, Intact, Normal Color, Warm Assessment and Plan (1) DKA (diabetic ketoacidoses) Status: Acute (2) DVT prophylaxis Status: Acute - Assessment and Plan (Free Text) Assessment: 1) DKA (diabetic ketoacidoses) Assessment and Plan: off insulin gtt, cont diet, fsbg, riss, levemir, endo Status: Acute (2) DVT prophylaxis Assessment and Plan: scd charan raman Status: Acute [id number] endo follwoing for all meds erx likely dc today
[2018-05-27] MEDS ORDERED: Insulin Lispro (humaLOG) 100 Units/ml Inj SC SCH (16:30)
--- NOTE | 2018-05-27 18:12 | PN ---
DATE: 05/27/2018 ENDO FOLLOWUP LOCATION: In room 430 ICU. SUBJECTIVE: This is a 42-year-old male with recent uncontrolled type 2 insulin-requiring diabetes presenting here with hyperosmolar hyperglycemic state and ketosis and also concomitant dehydration and has since then improved clinically and metabolically as noted overnight. His glucose levels are still fluctuating but improved and have ranged from 234-261 and 226 mg/dL. It was 296 at bedtime last night. LABORATORY DATA: His chemistry showed a BUN of 10, sodium 136, potassium 4.2, chloride 105, CO2 of 23, glucose 263 and creatinine 0.7. His repeat thyroid study showed a T4 of 4.18 with a TSH of 13.6 and a free T4 of 0.7. ASSESSMENT: This is a 42-year-old male with recent evaluation at onset of uncontrolled type 2 insulin-requiring diabetes presenting here with marked hyperglycemic accelerations and hyperosmolar hyperglycemic state and dehydration and has now improved clinically and metabolically with the initiation of intensive insulin therapy and vigorous IV hydration as given. He also has an incidental finding of overt hypothyroidism, most likely related to underlying autoimmune thyroiditis with underlying marked dyslipidemia as noted thereof. The high triglyceride values are most likely related to the recent uncontrolled type 2 insulin-requiring diabetes with relative insulin deficiency and impaired lipoprotein lipase activity as expected thus with increased triglyceride values as noted. Moreover with the underlying hypothyroidism this will also contribute to the elevated cholesterol values with impaired excretion of the LDL cholesterols as noted. PLAN OF MANAGEMENT: Plan of management was discussed lengthily with the patient at bedside, the imperative need for initiation of insulin therapy with a more physiologic basal and bolus insulin drug combination has to be undertaken, especially with the marked glucose toxicity on admission as noted. The implications of insulin therapy and possible eventual hypoglycemia and hopefully even recovery of the endogenous pancreatic stores and a switch over to oral hypoglycemic therapy given in combination with basal insulin therapy was also discussed with the patient and only time will really tell regarding his actual recovery thereof biochemically. The imperative need for home glucose monitoring to monitor his values has been discussed and he will follow with his primary physician for ongoing diabetic and medical follow-up as I do not a do not belong to his insurance company plan as noted. His insurance company [employer] took out all the endocrinologists in [facility] and even _[facility] from the plan. He has been advised to follow very closely with his primary physicians for outpatient insulin dose adjustments and may be switch over to oral hypoglycemic therapy as he recovers thereof. A serum C-peptide and GAD65 antibody levels are still pending as sent out. We will continue also a higher dosing of levothyroxine given as 100 mcg daily as ordered and dose adjustments also will be undertaken on the outpatient. The diabetic nurse educator, Ms. Alisson Horton came today for insulin administration teaching and also glucose monitoring. We will clear for discharge today as noted. Barbie Head MD
[2018-05-27] MEDS ORDERED: Insulin Detemir 100 Units/ml Inj SC SCH (22:00)
[2018-05-28] MEDS ORDERED: Levothyroxine 100 MCG TAB PO SCH (06:30)
[2018-05-28 16:05] LABS: C-PEPTIDE 0.82 ng/mL (0.80-3.85)
--- NOTE | 2018-05-29 11:47 | PQF ---
PROVIDER RESPONSE TEXT: DKA REVIEWER QUERY TEXT: Documentation Clarification Your help is requested in clarifying the following clinical documentation. Diabetic ketoacidosis and Hyperosmolar hyperglycemic state are both documented. If you can please further specify in the medic al record and discharge summary final diagnosis The patient's Clinical Indicators include: DKA VS HYPEROSMOLAR HYPERGLYCEMIC STATE. Query created by: Codi Neri on 05/29/2018 8:13 AM Electronically signed by: Petr Honeycutt APN 05/29/2018 11:43 AM
--- NOTE | 2018-05-30 17:39 | CP.PCM.DIS ---
Provider - Provider Date of Admission: 05/25/18 13:00 Attending physician: Min Thompson MD Consults: 05/25/18 15:32 Endocrinology Consult Routine Comment: Consulting Provider: Barbie Head Consulting Physician: Barbie Head Reason for Consult: DKA Time Spent in preparation of Discharge (in minutes): 15 Diagnosis - Discharge Diagnosis (1) DKA (diabetic ketoacidoses) Status: Acute Priority: High (2) DVT prophylaxis Status: Acute Priority: High Hospital Course - Lab Results Lab Results: Micro Results 05/27/18 15:50 Nose MRSA Culture (Admit) - Final MRSA NOT DETECTED 05/25/18 17:00 Naris MRSA Culture (Admit) - Final MRSA NOT DETECTED Most Recent Lab Values WBC 7.5 K/uL (4.8-10.8) 05/27/18 04:50 RBC 4.94 Mil/uL (4.40-5.90) 05/27/18 04:50 Hgb 13.9 g/dL (12.0-18.0) 05/27/18 04:50 Hct 41.8 % (35.0-51.0) 05/27/18 04:50 MCV 84.8 fl (80.0-94.0) D 05/27/18 04:50 MCH 28.3 pg (27.0-31.0) 05/27/18 04:50 MCHC 33.3 g/dL (33.0-37.0) 05/27/18 04:50 RDW 13.0 % (11.5-14.5) 05/27/18 04:50 Plt Count 139 K/uL (130-400) 05/27/18 04:50 MPV 9.2 fl (7.2-11.7) 05/27/18 04:50 Neut % (Auto) 51.3 % (50.0-75.0) 05/27/18 04:50 Lymph % (Auto) 37.6 % (20.0-40.0) 05/27/18 04:50 Andrew % (Auto) 6.7 % (0.0-10.0) 05/27/18 04:50 Eos % (Auto) 3.6 % (0.0-4.0) 05/27/18 04:50 Baso % (Auto) 0.8 % (0.0-2.0) 05/27/18 04:50 Neut # (Auto) 3.8 K/uL (1.8-7.0) 05/27/18 04:50 Lymph # (Auto) 2.8 K/uL (1.0-4.3) 05/27/18 04:50 Andrew # (Auto) 0.5 K/uL (0.0-0.8) 05/27/18 04:50 Eos # (Auto) 0.3 K/uL (0.0-0.7) 05/27/18 04:50 Baso # (Auto) 0.1 K/uL (0.0-0.2) 05/27/18 04:50 PT 10.5 Seconds (9.8-13.1) 05/25/18 12:05 INR 0.9 05/25/18 12:05 APTT 28.3 Seconds (25.6-37.1) 05/25/18 12:05 pO2 38 mm/Hg (30-55) 05/25/18 12:05 ABG Carboxyhemoglobin 3.8 % (0.5-1.5) H 05/25/18 12:05 POC ABG HHb (Measured) 21.1 % (0.0-5.0) H 05/25/18 12:05 ABG Methemoglobin 3.1 % (0.0-3.0) H 05/25/18 12:05 VBG pH 7.28 (7.32-7.43) L 05/25/18 12:05 VBG pCO2 43 mmHg (40-60) 05/25/18 12:05 VBG HCO3 19.1 mmol/L 05/25/18 12:05 VBG O2 Sat (Calc) 77.3 % (40-65) H 05/25/18 12:05 VBG Base Excess -6.4 mmol/L (0.0-2.0) L 05/25/18 12:05 VBG Hgb O2 Saturation 72.0 % (95.0-98.0) L 05/25/18 12:05 Hemoglobin 16.4 g/dL (11.7-17.4) 05/25/18 12:05 Blood Gas Comments Vbg 05/25/18 12:05 Crit Value Called To Nicole baltazar r.n. 05/25/18 12:05 Crit Value Called By Tanya 05/25/18 12:05 Crit Value Read Back Y 05/25/18 12:05 Blood Gas Notified Time 1216 05/25/18 12:05 Sodium 136 mmol/l (132-148) 05/27/18 04:50 Potassium 4.2 MMOL/L (3.6-5.0) 05/27/18 04:50 Chloride 105 mmol/L (98-107) 05/27/18 04:50 Carbon Dioxide 23 mmol/L (22-30) 05/27/18 04:50 Anion Gap 12 (10-20) 05/27/18 04:50 BUN 10 mg/dl (9-20) 05/27/18 04:50 Creatinine 0.7 mg/dl (0.8-1.5) L 05/27/18 04:50 Est GFR ( Amer) > 60 05/27/18 04:50 Est GFR (Non-Af Amer) > 60 05/27/18 04:50 POC Glucose (mg/dL) 234 mg/dL (65-110) H 05/27/18 11:11 Random Glucose 263 mg/dL (75-110) H 05/27/18 04:50 Hemoglobin A1c 13.3 % (4.2-6.5) H 05/26/18 05:30 C-Peptide 0.82 ng/mL (0.80-3.85) 05/26/18 05:30 Calcium 8.4 mg/dL (8.4-10.2) 05/27/18 04:50 Phosphorus 2.5 mg/dl (2.5-4.5) 05/27/18 04:50 Magnesium 1.5 MG/DL (1.6-2.3) L 05/26/18 05:30 Total Bilirubin 0.4 mg/dl (0.2-1.3) 05/27/18 04:50 AST 38 U/L (17-59) 05/27/18 04:50 ALT 62 U/L (21-72) 05/27/18 04:50 Alkaline Phosphatase 103 U/L (38-126) 05/27/18 04:50 Troponin I < 0.0120 ng/mL (0.00-0.120) 05/25/18 12:05 Total Protein 7.2 G/DL (6.3-8.2) 05/27/18 04:50 Albumin 3.4 g/dL (3.5-5.0) L 05/27/18 04:50 Globulin 3.8 gm/dL (2.2-3.9) 05/27/18 04:50 Albumin/Globulin Ratio 0.9 (1.0-2.1) L 05/27/18 04:50 Triglycerides 862 mg/DL (0-149) H 05/26/18 05:30 Cholesterol 227 mg/dL (0-199) H 05/26/18 05:30 LDL Cholesterol Direct 46 mg/dL (0-129) 05/26/18 05:30 HDL Cholesterol 27 MG/DL (30-70) L 05/26/18 05:30 Free T4 0.70 ng/dL (0.78-2.19) L 05/27/18 04:50 Thyroxine (T4) 4.18 ug/dl (5.5-11.0) L 05/27/18 04:50 TSH 3rd Generation 13.60 mIU/ML (0.46-4.68) H 05/27/18 04:50 Urine Color Straw (YELLOW) 05/25/18 12:20 Urine Clarity Clear (Clear) 05/25/18 12:20 Urine pH 6.0 (5.0-8.0) 05/25/18 12:20 Ur Specific [place] 1.030 (1.003-1.030) 05/25/18 12:20 Urine Protein Negative mg/dL (NEGATIVE) 05/25/18 12:20 Urine Glucose (UA) >=500 mg/dL (NEGATIVE) 05/25/18 12:20 Urine Ketones 20 mg/dL (NEGATIVE) 05/25/18 12:20 Urine Blood Negative (NEGATIVE) 05/25/18 12:20 Urine Nitrate Negative (NEGATIVE) 05/25/18 12:20 Urine Bilirubin Negative (NEGATIVE) 05/25/18 12:20 Urine Urobilinogen 0.2-1.0 mg/dL (0.2-1.0) 05/25/18 12:20 Ur Leukocyte Esterase Neg Aaron/uL (Negative) 05/25/18 12:20 Urine RBC (Auto) < 1 /hpf (0-3) 05/25/18 12:20 Urine Microscopic WBC < 1 /hpf (0-5) 05/25/18 12:20 Thyroperoxidase Ab 151 IU/mL (<9) H 05/27/18 04:50 - Hospital Course Hospital Course: endo, hydration insulin gtt levemit endoriss, fsbg Discharge Exam - Head Exam Head Exam: ATRAUMATIC, NORMAL INSPECTION, NORMOCEPHALIC Discharge Plan - Discharge Medications Prescriptions: Hydrocortisone 2.5% (Rectal) [Anusol-HC] 1 applic ND BID #1 tube Insulin Detemir [Levemir] 40 units SC HS #3 vial Insulin Lispro [Humalog Kwikpen U-100] 14 unit SQ AC #3 insuln.pen Levothyroxine [Synthroid] 75 mcg PO DAILY@0630 #30 tab Losartan [Cozaar] 50 mg PO DAILY #30 tab Polyethylene Glycol 3350 [Miralax] 17 gm PO DAILY PRN #30 packet PRN Reason: Constipation - Follow Up Plan Condition: STABLE Disposition: HOME/ ROUTINE Instructions: Diabetic Ketoacidosis (DC), Diabetic Ketoacidosis (GEN) Additional Instructions: final dx-dka meds per med rec, f/u rmg, rted prn glucose noted, cleared by endo for dc
== END 2018-05-27 15:32 | disposition home or self-care (01) | DRG 638 ==
LOC: H.ER 11:20 → H.ERHOLD 13:00 → H.ICU/CCU 14:16
PROVIDERS: ADMIT Family Medicine; ATTEND Family Medicine
DX: E11.10 Type 2 diabetes mellitus with ketoacidosis without coma (principal); E87.1 Hypo-osmolality and hyponatremia; E06.3 Autoimmune thyroiditis; E66.9 Obesity, unspecified; J45.909 Unspecified asthma, uncomplicated; I10 Essential (primary) hypertension; F17.210 Nicotine dependence, cigarettes, uncomplicated; E86.0 Dehydration; E87.5 Hyperkalemia; Z79.4 Long term (current) use of insulin; Z68.33 Body mass index [BMI] 33.0-33.9, adult